=== PATIENT | male | born 1950 | race Caucasian/White ===

== ENCOUNTER 2017-01-29 14:55 | Inpatient (IN) | payer MEDICARE ==
[2017-01-29] MEDS ORDERED: SODIUM CHLORIDE 0.9% 500 ML IV STA (15:28)
[2017-01-29] MEDS ORDERED: SODIUM CHLORIDE 0.9% 1,000 ML IV STA (15:28)
--- NOTE | 2017-01-29 15:37 | ED ---
General Adult HPI - General Chief complaint: Neuro Symptoms/Deficit Stated complaint: TIA Symptoms Time Seen by Provider: 01/29/17 15:28 Source: patient, RN notes reviewed, old records reviewed Mode of arrival: wheelchair Limitations: no limitations - History of Present Illness Initial comments: This is a 66-year-old male to the ER for evaluation of altered mental status. Patient has severe right-sided hemiparesis. Patient does have history of diabetes and cardiac risk, patient complaining of right-sided weakness and right -sided upper right and left lower extremity and facial paralysis. Patient inability to move. Symptoms are greater than 36 hours ago when he awoke yesterday. Symptoms have progressively worsened, patient presented ER for same. - Related Data Home Medications Medication Instructions Recorded Confirmed Aspirin EC [Ecotrin Low Dose] 81 mg PO DAILY 01/29/17 01/29/17 Baclofen 10 mg PO TID PRN 01/29/17 01/29/17 Cholecalciferol [Vitamin D3] 2,000 unit PO DAILY 01/29/17 01/29/17 Dapagliflozin Propanediol [Farxiga] 10 mg PO DAILY 01/29/17 01/29/17 Ferrous Sulfate [Feosol] 325 mg PO DAILY 01/29/17 01/29/17 Glimepiride [Amaryl] 2 mg PO DAILY 01/29/17 01/29/17 HYDROcodone/APAP 10-325MG [[place] 1 tab PO Q6H PRN 01/29/17 01/29/17 10-325] Losartan Potassium [Cozaar] 25 mg PO DAILY 01/29/17 01/29/17 Omeprazole 20 mg PO DAILY 01/29/17 01/29/17 Sertraline [Zoloft] 100 mg PO DAILY 01/29/17 01/29/17 fentaNYL 75MCG/HR PATCH [Duragesic 1 patch TRANSDERM Q72H 01/29/17 01/29/17 75MCG/HR] sitaGLIPtin PHOS/metFORMIN HCL 1 tab PO DAILY 01/29/17 01/29/17 [Janumet 50-1,000 mg Tablet] Allergies Allergy/AdvReac Type Severity Reaction Status Date / Time No Known Allergies Allergy Verified 01/29/17 16:00 Review of Systems ROS Statement: Those systems with pertinent positive or pertinent negative responses have been documented in the HPI. ROS Other: All systems not noted in ROS Statement are negative. Past Medical History Past Medical History: Cancer, Diabetes Mellitus Additional Past Medical History / Comment(s): skin CA History of Any Multi-Drug Resistant Organisms: None Reported Past Surgical History: No Surgical Hx Reported Additional Past Surgical History / Comment(s): lower back, spleen removed Past Psychological History: No Psychological Hx Reported Smoking Status: Never smoker Past Alcohol Use History: None Reported Past Drug Use History: None Reported General Exam Limitations: no limitations General appearance: alert, in no apparent distress Head exam: Present: atraumatic, normocephalic, normal inspection Eye exam: Present: normal appearance, PERRL, EOMI. Absent: scleral icterus, conjunctival injection, periorbital swelling ENT exam: Present: normal exam, mucous membranes moist Neck exam: Present: normal inspection. Absent: tenderness, meningismus, lymphadenopathy Respiratory exam: Present: normal lung sounds bilaterally. Absent: respiratory distress, wheezes, rales, rhonchi, stridor Cardiovascular Exam: Present: regular rate, normal rhythm, normal heart sounds. Absent: systolic murmur, diastolic murmur, rubs, gallop, clicks GI/Abdominal exam: Present: soft, normal bowel sounds. Absent: distended, tenderness, guarding, rebound, rigid Extremities exam: Present: normal inspection, full ROM, normal capillary refill. Absent: tenderness, pedal edema, joint swelling, calf tenderness Back exam: Present: normal inspection Neurological exam: Present: alert, oriented X3, CN II-XII intact Psychiatric exam: Present: normal affect, normal mood Skin exam: Present: warm, dry, intact, normal color. Absent: rash Course Vital Signs 01/29/17 01/29/17 01/29/17 14:57 15:03 15:20 Temperature 100.8 F H Pulse Rate 89 85 Respiratory 18 18 Rate Blood Pressure 179/89 159/78 O2 Sat by Pulse 93 L Oximetry 01/29/17 01/29/17 01/29/17 15:35 15:53 16:03 Temperature 99.4 F Pulse Rate 85 82 Respiratory 18 20 Rate Blood Pressure 172/97 170/97 O2 Sat by Pulse 93 L 96 Oximetry - Reevaluation(s) Reevaluation #1: 01/29/17 17:13 Spoke with family greater than 15 minutes regarding significant disease process. EKG Findings - EKG Comments: EKG Findings:: EKG shows sinus rhythm rate of 83, pO2 80, QRS 160, QTc 467 Medical Decision Making - Medical Decision Making 66 mL to ER with severe CVA, full right-sided hemiparesis, patient will be admitted for neurological evaluation no stroke candidate secondary to presentation from duration of symptoms being greater than a day. Patient given aspirin, will admit for neurological testing, neuro evaluation - Lab Data Result diagrams: 01/29/17 15:37 01/29/17 15:37 Lab Results 01/29/17 01/29/17 01/29/17 Range/Units 15:37 15:37 15:37 WBC 13.7 H (3.8-10.6) k/uL RBC 4.21 L (4.30-5.90) m/uL Hgb 14.5 (13.0-17.5) gm/dL Hct 45.0 (39.0-53.0) % MCV 107.0 H (80.0-100.0) fL MCH 34.6 (25.0-35.0) pg MCHC 32.3 (31.0-37.0) g/dL RDW 17.9 H (11.5-15.5) % Plt Count 265 (150-450) k/uL Neutrophils % (Manual) 30.5 % Band Neutrophils % 0.5 % Lymphocytes % (Manual) 65.5 % Monocytes % (Manual) 3.5 % Neutrophils # (Manual) 4.2 (1.3-7.7) k/uL Lymphocytes # (Manual) 9.0 H (1.0-4.8) k/uL Monocytes # (Manual) 0.5 (0-1.0) k/uL Nucleated RBCs 4 H (0-0) /100 WBC Manual Slide Review Performed Toxic Granulation Present Polychromasia Present Poikilocytosis (manual Present Anisocytosis Slight Macrocytosis Marked PT (9.0-12.0) sec INR (<1.2) APTT (22.0-30.0) sec Sodium 139 (137-145) mmol/L Potassium 4.7 (3.5-5.1) mmol/L Chloride 104 (98-107) mmol/L Carbon Dioxide 25 (22-30) mmol/L Anion Gap 10 mmol/L BUN 22 H (9-20) mg/dL Creatinine 1.10 (0.66-1.25) mg/dL Est GFR (MDRD) Af Amer >60 (>60 ml/min/1.73 sqM) Est GFR (MDRD) Non-Af >60 (>60 ml/min/1.73 sqM) Glucose 219 H (74-99) mg/dL Calcium 8.5 (8.4-10.2) mg/dL Phosphorus 3.3 (2.5-4.5) mg/dL Magnesium 1.7 (1.6-2.3) mg/dL Total Bilirubin 0.8 (0.2-1.3) mg/dL AST 34 (17-59) U/L ALT 41 (21-72) U/L Alkaline Phosphatase 64 (38-126) U/L Total Creatine Kinase 59 (55-170) U/L CK-MB (CK-2) 1.7 (0.0-2.4) ng/mL CK-MB (CK-2) Rel Index 2.9 Troponin I 0.019 (0.000-0.034) ng/mL Total Protein 7.0 (6.3-8.2) g/dL Albumin 4.2 (3.5-5.0) g/dL 01/29/17 Range/Units 15:37 WBC (3.8-10.6) k/uL RBC (4.30-5.90) m/uL Hgb (13.0-17.5) gm/dL Hct (39.0-53.0) % MCV (80.0-100.0) fL MCH (25.0-35.0) pg MCHC (31.0-37.0) g/dL RDW (11.5-15.5) % Plt Count (150-450) k/uL Neutrophils % (Manual) % Band Neutrophils % % Lymphocytes % (Manual) % Monocytes % (Manual) % Neutrophils # (Manual) (1.3-7.7) k/uL Lymphocytes # (Manual) (1.0-4.8) k/uL Monocytes # (Manual) (0-1.0) k/uL Nucleated RBCs (0-0) /100 WBC Manual Slide Review Toxic Granulation Polychromasia Poikilocytosis (manual Anisocytosis Macrocytosis PT 11.4 (9.0-12.0) sec INR 1.1 (<1.2) APTT 26.2 (22.0-30.0) sec Sodium (137-145) mmol/L Potassium (3.5-5.1) mmol/L Chloride (98-107) mmol/L Carbon Dioxide (22-30) mmol/L Anion Gap mmol/L BUN (9-20) mg/dL Creatinine (0.66-1.25) mg/dL Est GFR (MDRD) Af Amer (>60 ml/min/1.73 sqM) Est GFR (MDRD) Non-Af (>60 ml/min/1.73 sqM) Glucose (74-99) mg/dL Calcium (8.4-10.2) mg/dL Phosphorus (2.5-4.5) mg/dL Magnesium (1.6-2.3) mg/dL Total Bilirubin (0.2-1.3) mg/dL AST (17-59) U/L ALT (21-72) U/L Alkaline Phosphatase (38-126) U/L Total Creatine Kinase (55-170) U/L CK-MB (CK-2) (0.0-2.4) ng/mL CK-MB (CK-2) Rel Index Troponin I (0.000-0.034) ng/mL Total Protein (6.3-8.2) g/dL Albumin (3.5-5.0) g/dL - Radiology Data Radiology results: report reviewed (Chest x-ray negative, CT brain is negative for acute disease, CTA and she'll head and neck is pending), image reviewed Critical Care Time Critical Care Time: Yes Total Critical Care Time: 31 Disposition Clinical Impression: Cerebrovascular accident Disposition: ADMITTED IP TO THIS [facility] Condition: Good Referrals: Justice Segovia MD [Primary Care Provider] - 1-2 days
[2017-01-29 15:47] LABS: Anisocytosis Slight; CH 35.3; CHCM 33.3; HDW 3.14; HGB 14.5 gm/dL (13.0-17.5); MCH 34.6 pg (25.0-35.0); MCHC 32.3 g/dL (31.0-37.0); Macrocytosis Marked; Mean Platelet Volume 8.3; RBC 4.21 m/uL (4.30-5.90); RDW 17.9 % (11.5-15.5); WBC (Perox) 13.76
[2017-01-29 15:58] LABS: ALT 41 U/L (21-72); AST 34 U/L (17-59); Alkaline Phosphatase 64 U/L (38-126); Anion Gap 10 mmol/L; Blood Urea Nitrogen 22 mg/dL (9-20); Calcium 8.5 mg/dL (8.4-10.2); Carbon Dioxide 25 mmol/L (22-30); Chloride 104 mmol/L (98-107); Glucose 219 mg/dL (74-99); Magnesium 1.7 mg/dL (1.6-2.3); Non-African American GFR(MDRD) >60 (>60 ml/min/1.73 sqM); Phosphorous 3.3 mg/dL (2.5-4.5); Potassium 4.7 mmol/L (3.5-5.1); Sodium 139 mmol/L (137-145); Total Bilirubin 0.8 mg/dL (0.2-1.3)
--- NOTE | 2017-01-29 15:59 | CT ---
EXAMINATION TYPE: CT brain wo con DATE OF EXAM: 01/29/2017 HISTORY: TIA symptoms CT DLP: 978.2 mGycm. Automated Exposure Control for Dose Reduction was Utilized. TECHNIQUE: CT scan of the head is performed without contrast. COMPARISON: None. FINDINGS: There is no acute intracranial hemorrhage or midline shift identified. There is diffuse v entricular and sulcal prominence consistent with diffuse age-related cerebral atrophy. There is low- attenuation in the periventricular white matter consistent with chronic small vessel ischemic change. The globes are intact and the visualized sinuses are clear. IMPRESSION: No acute intracranial hemorrhage or midline shift. There is mild to moderate diffuse ag e-related cerebral atrophy and chronic small vessel ischemic change noted. If clinical concern for a cute stroke persists further investigation with MRI study may be warranted.
[2017-01-29 16:00] LABS: INR 1.1 (<1.2); Partial Thromboplastin Time 26.2 sec (22.0-30.0); Prothrombin Time 11.4 sec (9.0-12.0)
[2017-01-29 16:14] LABS: Creatine Kinase MB 1.7 ng/mL (0.0-2.4)
[2017-01-29 16:18] LABS: Troponin I 0.019 ng/mL (0.000-0.034)
[2017-01-29 16:20] LABS: Add Differential Manual Differential
[2017-01-29 16:25] LABS: Band Neutrophils % 0.5 %; Nucleated Red Blood Cells 4 /100 WBC (0-0); Total Cells Counted 200; WBC 13.7 k/uL (3.8-10.6)
[2017-01-29 16:26] LABS: Manual Review Performed; Polychromasia Present; Toxic Granulation Present
[2017-01-29] MEDS ORDERED: RX INFO: IV CONTRAST WAS GIVEN 1 EACH MISC MISCELLANE PRN (16:35)
--- NOTE | 2017-01-29 16:52 | XR ---
EXAMINATION TYPE: XR chest 2V DATE OF EXAM: 01/29/2017 COMPARISON: 11/27/2012 HISTORY: Weakness TECHNIQUE: Frontal and lateral views of the chest are obtained. FINDINGS: There is elevated right diaphragm. There is no heart failure. Costophrenic angles are marvin r. There are chest leads. IMPRESSION: Chronic right diaphragm elevation there is worse than last exam and consistent with diap hragm paralysis. No heart failure.
[2017-01-29] MEDS ORDERED: ASPIRIN 325 MG TAB PO STA (17:08)
--- NOTE | 2017-01-29 17:34 | CT ---
EXAMINATION TYPE: CT angio head neck DATE OF EXAM: 01/29/2017 HISTORY: Patient complians of right side weakness COMPARISON: NONE CT DLP: 280.4 mGycm. Automated Exposure Control for Dose Reduction was Utilized. TECHNIQUE: CTA scan of the neck is performed with IV Contrast, patient injected with 65 mL of Omnipa que 350, axial images are obtained, coronal and sagittal reformatted images are reviewed. Three-D rec onstructed images are created on an independent workstation and reviewed. FINDINGS: There is normal branching pattern of the great vessels on the aortic arch. There is bilateral patency of the common internal and external carotid arteries. There is minimal atherosclerotic changes at th e carotid artery bifurcations. There is no evidence of stenosis. There is arterial flow in both vertebral arteries. There is normal contrast opacification of the venous sinuses. There is arterial flow in the anterior middle and posterior cerebral arteries. There is arterial flow in the vertebrobasilar artery system. There is some atherosclerotic calcification in the distal left vertebral artery. I see no significant stenosis. I see no evidence of aneurysm or neovascularity. IMPRESSION: No evidence of hemodynamically significant stenosis. Minimal atherosclerotic disease.
--- NOTE | 2017-01-29 18:02 | US ---
EXAMINATION TYPE: US carotid duplex BILAT DATE OF EXAM: 01/29/2017 COMPARISON: NONE CLINICAL HISTORY: Stenosis. TIA EXAM MEASUREMENTS: RIGHT: Peak Systolic Velocity (PSV) cm/sec ----- Right CCA: 53.7 ----- Right ICA: 66.9 ----- Right ECA: 104.8 ICA/CCA ratio: 1.2 RIGHT: End Diastole cm/sec ----- Right CCA: 13.1 ----- Right ICA: 18.6 ----- Right ECA: 6.3 LEFT: Peak Systolic Velocity (PSV) cm/sec ----- Left CCA: 90.5 ----- Left ICA: 87.9 ----- Left ECA: 83.8 ICA/CCA ratio: 1.0 LEFT: End Diastole cm/sec ----- Left CCA: 18 ----- Left ICA: 29.6 ----- Left ECA: 0 VERTEBRALS (direction of flow): Right Vertebral: Antegrade Left Vertebral: Antegrade No significant stenois visualized. Vessels dive deep. IMPRESSION: There is antegrade flow in the vertebral arteries. The images and measurements suggest c lose to 0% stenosis in both internal carotid arteries. Criteria for Assigning % of Stenosis / Diameter reduction (Estimation based on the indirect measurements of the internal carotid artery velocities (ICA PSV). 1. Normal (no stenosis)=ICA PSV < 125 cm/s: ratio < 2.0: ICA EDV<40 cm/s. 2. Less than 50% stenosis=ICA PSV < 125 cm/s: ratio < 2.0: ICA EDV<40 cm/s. 3. 50 to 69% stenosis=ICA PSV of 125 to 230 cm/s: ration 2.0 ? 4.0: ICA EDV 40-100 cm/s. 4. Greater than 70% stenosis to near occlusion= ICA PSV > 230 cm/s: ratio > 4.0: ICA EDV > 100 cm/s. 5. Near occlusion= ICA PSV velocities may be low or undetectable: variable ratio and ICA EDV. 6. Total occlusion=unable to detect flow.
[2017-01-29 19:50] VITALS: BMI 26.1
[2017-01-29] MEDS ORDERED: HYDROcodone/APAP 10-325MG 1 EACH TAB PO PRN (20:22)
--- NOTE | 2017-01-29 20:42 | P.CNNES ---
History of Present Illness Consult date: 01/29/17 Reason for Consult: Patient being evaluated for TIA versus stroke. History of Present Illness: This patient is a 66-year-old right-handed white male who apparently around midnight last night awoke with symptoms of right-sided weakness. Patient was noticing difficulty with the use of his right arm. He then apparently tried to stand up and go into the bathroom. He made it to the bathroom but on his way back he fell due to weakness of his right leg. His was able to help him and used a transport chair to get him back into bed. Patient has a history of diabetic peripheral neuropathy which does cause him to fall quite often. His felt that this may have been the reason for his fall. She was able to assist him back into bed. He went to bed and awoke only early in the morning. Around 10 or 11 AM he once again noted right-sided weakness. He got up quite late according to the patient. He noted that he was unable to lift his right leg due to weakness. He was also having difficulty with the use of his right arm. He does have a history of diabetes mellitus and his most recent hemoglobin A1c according to the patient was 7.1. He has been diabetic for over 10 years. He states his total cholesterol has been good and usually runs below 200. The patient denies any previous history of TIA or stroke. His symptoms of weakness seemed to progress at home and this was the main reason the decided to bring him to the ER for further evaluation. He was seen in the emergency room at [facility] by Dr. Melendez. He was sent for a computed tomography scan of the brain which revealed no acute intracranial hemorrhage or midline shift. There was mild to moderate diffuse age-related cerebral atrophy and chronic small vessel disease noted. Patient was given one aspirin in the ER and admitted to the hospital. Patient was not a candidate for TPA as he was outside of the therapeutic window. His symptoms were almost 36 hours in process. The patient denies previous history of TIA or stroke. He was sent for a CTA angiogram of the head and neck in the emergency room as well which revealed no evidence of hemodynamically significant stenosis. Carotid Doppler study also failed to reveal any significant carotid artery stenosis. The patient was subsequently admitted to the hospital for further evaluation. Neurology is now been consulted for further evaluation and recommendations. Review of Systems Constitutional: Denies chills, Denies fever Eyes: denies blurred vision, denies pain Ears, nose, mouth and throat: Denies headache, Denies sore throat Cardiovascular: Denies chest pain, Denies shortness of breath Respiratory: Denies cough Gastrointestinal: Denies abdominal pain, Denies diarrhea, Denies nausea, Denies vomiting Musculoskeletal: Denies myalgias Integumentary: Denies pruritus, Denies rash Neurological: Reports balance difficulties, Reports change in mentation, Reports change in speech, Reports gait dysfunction, Reports lack of coordination , Reports motor disturbance, Reports paresthesias, Reports sensory deficit, Denies numbness, Denies weakness Psychiatric: Denies anxiety, Denies depression Endocrine: Denies fatigue, Denies weight change Past Medical History Past Medical History: Cancer, Diabetes Mellitus Additional Past Medical History / Comment(s): skin CA History of Any Multi-Drug Resistant Organisms: None Reported Past Surgical History: No Surgical Hx Reported Additional Past Surgical History / Comment(s): lower back, spleen removed Past Psychological History: No Psychological Hx Reported Smoking Status: Never smoker Past Alcohol Use History: None Reported Past Drug Use History: None Reported Medications and Allergies Home Medications Medication Instructions Recorded Confirmed Type Aspirin EC [Ecotrin Low Dose] 81 mg PO DAILY 01/29/17 01/29/17 History Baclofen 10 mg PO TID PRN 01/29/17 01/29/17 History Cholecalciferol [Vitamin D3] 2,000 unit PO DAILY 01/29/17 01/29/17 History Dapagliflozin Propanediol [Farxiga] 10 mg PO DAILY 01/29/17 01/29/17 History Ferrous Sulfate [Feosol] 325 mg PO DAILY 01/29/17 01/29/17 History Glimepiride [Amaryl] 2 mg PO DAILY 01/29/17 01/29/17 History HYDROcodone/APAP 10-325MG [[place] 1 tab PO Q6H PRN 01/29/17 01/29/17 History 10-325] Losartan Potassium [Cozaar] 25 mg PO DAILY 01/29/17 01/29/17 History Omeprazole 20 mg PO DAILY 01/29/17 01/29/17 History Sertraline [Zoloft] 100 mg PO DAILY 01/29/17 01/29/17 History fentaNYL 75MCG/HR PATCH [Duragesic 1 patch TRANSDERM Q72H 01/29/17 01/29/17 History 75MCG/HR] sitaGLIPtin PHOS/metFORMIN HCL 1 tab PO DAILY 01/29/17 01/29/17 History [Janumet 50-1,000 mg Tablet] Allergies Allergy/AdvReac Type Severity Reaction Status Date / Time No Known Allergies Allergy Verified 01/29/17 16:00 Physical Examination - Vital Signs Vital Signs: Vital Signs Temp Pulse Resp BP Pulse Ox 01/29/17 18:00 74 20 159/76 96 01/29/17 16:03 82 20 170/97 96 01/29/17 15:53 99.4 F 01/29/17 15:35 85 18 172/97 93 L 01/29/17 15:20 85 18 159/78 93 L 01/29/17 15:03 100.8 F H 01/29/17 14:57 89 18 179/89 Intake and Output 01/29/17 01/29/17 01/29/17 06:59 14:59 22:59 Other: Weight 68.946 kg Patient Weight 01/30/17 06:59 Weight 68.946 kg - Constitutional General appearance: average body habitus, cooperative - EENT EENT: PERRL, mucous membranes moist - Respiratory Respiratory: lungs clear, normal breath sounds - Cardiovascular Cardiovascular: regular rate, normal S1, normal S2 Extremities: no peripheral edema bilaterally - Gastrointestinal Gastrointestinal: normoactive bowel sounds - Integumentary Integumentary: normal - Neurologic Cranial nerve examination: PERRL, EOMI, VFF, V1/V2/V3 grossly intact, tongue midline, intact gag reflex, intact corneal reflex, facial droop (Patient has right upper motor neuron facial weakness pattern.), normal palatal elevation Speech examination: intact Sensorimotor examination: intact Motor examination - right side: 3/5: biceps, triceps, wrist flexion, wrist extension, dental assistant, hip flexors, knee extensors, dorsiflexion, toe extension (EHL) , plantarflexion Motor examination - left side: 5/5: biceps, triceps, wrist flexion, wrist extension, dental assistant, hip flexors, knee extensors, dorsiflexion, toe extension (EHL) , plantarflexion Detailed sensory examination: intact Reflex and gait examination: intact Reflexes: 1+: ankle, bicep, knee, tricep - Musculoskeletal Musculoskeletal: no pain - Psychiatric Psychiatric: mood/affect appropriate, cooperative Results - Laboratory Findings CBC and BMP: 01/29/17 15:37 01/29/17 15:37 Abnormal Lab Findings: Abnormal Labs 01/29/17 01/29/17 15:37 15:37 WBC 13.7 H RBC 4.21 L MCV 107.0 H RDW 17.9 H Lymphocytes # (Manual) 9.0 H Nucleated RBCs 4 H BUN 22 H Glucose 219 H Assessment and Plan (1) Left acute arterial ischemic stroke, MCA (middle cerebral artery) Status: Acute Code(s): I63.512 - CEREB INFRC D/T UNSP OCCLS OR STENOS OF LEFT MID CEREB ART (2) Diabetes mellitus Status: Acute Code(s): E11.9 - TYPE 2 DIABETES MELLITUS WITHOUT COMPLICATIONS (3) Chronic low back pain Status: Acute Code(s): M54.5 - LOW BACK PAIN; G89.29 - OTHER CHRONIC PAIN (4) Hypertension Status: Acute Code(s): I10 - ESSENTIAL (PRIMARY) HYPERTENSION Plan: This patient is a 66-year-old right-handed white male admitted to hospital with acute right-sided weakness and facial droop. Patient's symptoms began around midnight yesterday. He did not seek medical attention at that time but decided this morning to come to the emergency room. He was taken to [facility] ER today and was seen by Dr. Melendez. He underwent a computed tomography scan of the brain results which are noted above. There is no evidence of acute stroke. Patient was not a candidate for TPA as his deficits were over 36 hours in duration. He continued to demonstrate right-sided hemiparesis in the ER. He was admitted to hospital for further stroke evaluation. Patient underwent carotid Doppler study which failed to reveal any significant carotid artery stenosis. CTA angiogram of the head and neck was completed and was negative. He was given aspirin and admitted to the hospital. His neurological examination at this time reveals right-sided hemiparesis leg greater than arm. He has right facial droop as well. This patient has suffered an acute left hemispheric stroke. We have recommended a complete stroke evaluation for the patient. His overall prognosis at this time remains very guarded. Time with Patient: Greater than 30
[2017-01-29 20:56] LABS: Glucose,Whole Blood 129 mg/dL (75-99)
[2017-01-29] MEDS: SODIUM CHLORIDE 0.9% 1,000 ML IV SCH (21:25)
[2017-01-29] MEDS: INSULIN LISPRO (humaLOG) 300 UNIT/3 ML VIAL SQ SCH (21:26)
[2017-01-30 00:16] LABS: Hemoglobin A1C 8.7 % (4.2-6.1)
[2017-01-30 04:01] LABS: Anion Gap 10 mmol/L; Blood Urea Nitrogen 20 mg/dL (9-20); Calcium 8.3 mg/dL (8.4-10.2); Carbon Dioxide 25 mmol/L (22-30); Chloride 106 mmol/L (98-107); Cholesterol 126 mg/dL (<200); Glucose 87 mg/dL (74-99); HDL Cholesterol 33 mg/dL (40-60); Magnesium 1.7 mg/dL (1.6-2.3); Non-African American GFR(MDRD) >60 (>60 ml/min/1.73 sqM); Potassium 4.2 mmol/L (3.5-5.1); Sodium 141 mmol/L (137-145); Triglycerides 186 mg/dL (<150)
[2017-01-30 04:28] LABS: Anisocytosis Slight; CHCM 32.9; HGB 13.3 gm/dL (13.0-17.5); Macrocytosis Marked
[2017-01-30 05:01] LABS: CH 34.8; HCT 40.9 % (39.0-53.0); HDW 3.17; MCH 34.7 pg (25.0-35.0); MCHC 32.5 g/dL (31.0-37.0); MCV 106.7 fL (80.0-100.0); RBC 3.83 m/uL (4.30-5.90); RDW 17.7 % (11.5-15.5)
[2017-01-30 06:28] LABS: Glucose,Whole Blood 110 mg/dL (75-99)
[2017-01-30 06:39] LABS: Add Differential Manual Differential
[2017-01-30] MEDS: INSULIN LISPRO (humaLOG) 300 UNIT/3 ML VIAL SQ SCH ×4 (06:42→21:19)
[2017-01-30 06:45] LABS: Nucleated Red Blood Cells 3 /100 WBC (0-0); Total Cells Counted 200; WBC 12.6 k/uL (3.8-10.6)
[2017-01-30 06:47] LABS: Howell-Jolly Bodies Present; Polychromasia Present; Target Cells Present
[2017-01-30] MEDS ORDERED: HEPARIN SODIUM,PORCINE 5,000 UNIT/ML 1 ML VIAL IV PRN (06:50)
[2017-01-30] MEDS ORDERED: HEPARIN SODIUM,PORCINE/D5W PMX 25,000 UNIT in DEXTROSE/WATER 1 500ML.BAG IV SCH (07:00)
[2017-01-30] MEDS: GLIMEPIRIDE 2 MG TAB PO SCH (07:01)
[2017-01-30] MEDS: PANTOPRAZOLE 40 MG TABLET PO SCH (07:01)
[2017-01-30] MEDS: SODIUM CHLORIDE 0.9% 1,000 ML IV SCH ×3 (07:03→21:17)
[2017-01-30 07:53] LABS: INR 1.1 (<1.2); Partial Thromboplastin Time 25.9 sec (22.0-30.0); Prothrombin Time 10.7 sec (9.0-12.0)
[2017-01-30] MEDS ORDERED: NON-FORMULARY DRUG (Sitagliptin Phos/Metformin Hcl [Janumet 50-1,000 Mg Tablet] 1 TAB) PO SCH (09:00)
[2017-01-30] MEDS ORDERED: NON-FORMULARY DRUG (Dapagliflozin Propanediol [Farxiga] 10 MG) PO SCH (09:00)
[2017-01-30] MEDS: SERTRALINE 100 MG TAB PO SCH (09:39)
[2017-01-30] MEDS: LINAGLIPTIN 5 MG TABLET PO SCH (09:39)
[2017-01-30] MEDS: metFORMIN 500 MG TAB PO SCH (09:39)
[2017-01-30] MEDS: FERROUS SULFATE 325 MG TAB PO SCH (09:40)
[2017-01-30] MEDS: ASPIRIN 325 MG TAB PO SCH (09:40)
[2017-01-30] MEDS: CHOLECALCIFEROL 1,000 UNIT TAB PO SCH (09:40)
--- NOTE | 2017-01-30 11:29 | ECHOF ---
Referral Reason:Thrombus MEASUREMENTS -------- HEIGHT: 162.6 cm WEIGHT: 66.7 kg BP: 128/76 IVSd: 1.3 cm (0.6 - 1.1) LVIDd: 4.1 cm (3.9 - 5.3) LVPWd: 1.1 cm (0.6 - 1.1) IVSs: 1.8 cm LVIDs: 3.1 cm LVPWs: 1.1 cm Ao Diam: 3.5 cm (2.0 - 3.7) AV Cusp: 2.0 cm (1.5 - 2.6) LA Diam: 3.0 cm (2.7 - 3.8) MV EXCURSION: 15.618 mm (> 18.000) MV EF SLOPE: 124 mm/s (70 - 150) EPSS: 0.6 cm MV E Dagoberto: 0.84 m/s MV DecT: 71 ms MV A Dagoberto: 0.84 m/s MV E/A Ratio: 1.00 RAP: 5.00 mmHg RVSP: 12.89 mmHg FINDINGS -------- Sinus rhythm. BBB This was a technically difficult study with suboptimal views. The left ventricular size is normal. There is mild concentric left ventricular hypertrophy. Overall left ventricular systolic function is mild-moderately impaired with, an EF between 40 - 45 %. Basal lateral LV wall motion is hypokinetic. Basal inferior LV wall motion is hypokinetic. Basal inferoseptal LV wall motion is hypokinetic. Mid inferior LV wall motion is hypokinetic. Apical inferior LV wall motion is hypokinetic. The right ventricle is normal in size and function. The left atrium is normal in size. The right atrium is normal in size. 1.5mg of Definity was utilized for enhancement of images There is mild aortic valve sclerosis. Mild mitral annular calcification present. Mild mitral regurgitation is present. Trace tricuspid regurgitation present. The right ventricular systolic pressure, as measured by Doppler, is 12.89mmHg. There is no pulmonic regurgitation present. The aortic root size is normal. There is no pericardial effusion. CONCLUSIONS -------- 1. Sinus rhythm. 2. The left atrium is normal in size. 3. 1.5mg of Definity was utilized for enhancement of images 4. There is mild aortic valve sclerosis. 5. Mild mitral annular calcification present. 6. Mild mitral regurgitation is present. 7. Trace tricuspid regurgitation present. 8. The right ventricular systolic pressure, as measured by Doppler, is 12.89mmHg. 9. There is no pulmonic regurgitation present. 10. The aortic root size is normal. 11. There is no pericardial effusion. 12. This was a technically difficult study with suboptimal views. 13. There is mild concentric left ventricular hypertrophy. 14. Overall left ventricular systolic function is mild-moderately impaired with, an EF between 40 - 45 %. 15. Basal lateral LV wall motion is hypokinetic. 16. Basal inferior LV wall motion is hypokinetic. 17. Basal inferoseptal LV wall motion is hypokinetic. 18. Mid inferior LV wall motion is hypokinetic. 19. Apical inferior LV wall motion is hypokinetic. CAR ICER: Alejandrina Lody RDCS
--- NOTE | 2017-01-30 12:50 | MR ---
EXAMINATION TYPE: MR brain wo con DATE OF EXAM: 01/30/2017 12:26 PM. COMPARISON: NONE. HISTORY: Left hemispheric stroke. Technique: Multiplanar, multiecho imaging of the brain was obtained without intravenous contrast. FINDINGS: Midline structures are unremarkable. There is a normal craniocervical junction. There is 11.6 x 17.9 mm area of restricted diffusion in the posterior aspect of the holloway radiata on the left. No other restricted diffusion is seen. There are normal vascular flow voids. The orbits are normal. There is no evidence of a CP angle mass lesion. There is a focal FLAIR lesion corresponding to the area restricted diffusion in the holloway radiata on the left. There are other scattered high signal FLAIR lesions throughout the deep white matter tract s was utilized.. There is no mass effect, midline shift or intracranial blood. IMPRESSION: 1. EVIDENCE OF A SUBACUTE INFARCT INVOLVING THE POSTERIOR HOLLOWAY RADIATA ON THE LEFT. 2. SCATTERED HIGH SIGNAL FLAIR LESIONS THROUGHOUT THE DEEP WHITE MATTER TRACTS OF THE CEREBRAL HEMISP HERES ARE LIKELY ON THE BASIS SMALL VESSEL DISEASE.
[2017-01-30 12:56] LABS: Glucose,Whole Blood 195 mg/dL (75-99)
--- NOTE | 2017-01-30 16:29 | P.HPIM ---
History of Present Illness 66-year-old male came in with right-sided weakness found to have a stroke on MRI left holloway radiate, carotid Doppler, CT angiography head and neck did not show any significant occlusive disease. Patient has decreased ejection fraction was evaluated by cardiology patient is minimally elevated troponin as well although denied any chest pain patient does have some right bundle branch block pattern on the check on the EKG patient was evaluated by cardiology. Because of minimal elevation of troponin and cardiology is recommending a monitor because of possible Atrial fibrillation contributing to this stroke. Patient did undergo PT and OT evaluation patient denied any fever chills, nausea , vomiting, shortness of breath, orthopnea, PND. Patient patient did have improved weakness on the right upper limb as well as lower limb but still has 3 x 5 strength in right upper limb and around 2-3 x 5 strength in right lower limb along with facial droop. Review of Systems REVIEW OF SYSTEMS: CONSTITUTIONAL: No fever, no malaise, no fatigue. HEENT: No recent visual problems or hearing problems. Denied any sore throat. CARDIOVASCULAR: No chest pain, orthopnea, PND, no palpitations, no syncope. PULMONARY: No shortness of breath, no cough, no hemoptysis. GASTROINTESTINAL: No diarrhea, no nausea, no vomiting, no abdominal pain. Normoactive bowel sounds. NEUROLOGICAL: As described in HPI HEMATOLOGICAL: Denies any bleeding or petechiae. GENITOURINARY: Denies any burning micturition, frequency, or urgency. MUSCULOSKELETAL/RHEUMATOLOGICAL: Denies any joint pain, swelling, or any muscle pain. ENDOCRINE: Denies any polyuria or polydipsia. The rest of the 14-point review of systems is negative. Past Medical History Past Medical History: Cancer, Diabetes Mellitus Additional Past Medical History / Comment(s): skin CA History of Any Multi-Drug Resistant Organisms: None Reported Past Surgical History: No Surgical Hx Reported Additional Past Surgical History / Comment(s): lower back, spleen removed Past Psychological History: No Psychological Hx Reported Smoking Status: Never smoker Past Alcohol Use History: None Reported Past Drug Use History: None Reported Medications and Allergies Home Medications Medication Instructions Recorded Confirmed Type Aspirin EC [Ecotrin Low Dose] 81 mg PO DAILY 01/29/17 01/29/17 History Baclofen 10 mg PO TID PRN 01/29/17 01/29/17 History Cholecalciferol [Vitamin D3] 2,000 unit PO DAILY 01/29/17 01/29/17 History Dapagliflozin Propanediol [Farxiga] 10 mg PO DAILY 01/29/17 01/29/17 History Ferrous Sulfate [Feosol] 325 mg PO DAILY 01/29/17 01/29/17 History Glimepiride [Amaryl] 2 mg PO DAILY 01/29/17 01/29/17 History HYDROcodone/APAP 10-325MG [[place] 1 tab PO Q6H PRN 01/29/17 01/29/17 History 10-325] Losartan Potassium [Cozaar] 25 mg PO DAILY 01/29/17 01/29/17 History Omeprazole 20 mg PO DAILY 01/29/17 01/29/17 History Sertraline [Zoloft] 100 mg PO DAILY 01/29/17 01/29/17 History fentaNYL 75MCG/HR PATCH [Duragesic 1 patch TRANSDERM Q72H 01/29/17 01/29/17 History 75MCG/HR] sitaGLIPtin PHOS/metFORMIN HCL 1 tab PO DAILY 01/29/17 01/29/17 History [Janumet 50-1,000 mg Tablet] Allergies Allergy/AdvReac Type Severity Reaction Status Date / Time No Known Allergies Allergy Verified 01/29/17 16:00 Physical Exam Vitals: Vital Signs Temp Pulse Pulse Resp BP BP Pulse Ox 01/30/17 13:00 98 F 82 18 129/69 97 01/30/17 08:49 93 L 01/30/17 08:45 84 17 01/30/17 03:35 97.1 F L 77 16 128/76 93 L 01/29/17 23:45 97.8 F 74 18 126/76 91 L 01/29/17 19:18 97.1 F L 76 18 148/88 93 L 01/29/17 18:55 99.1 F 74 18 159/76 98 01/29/17 18:00 74 20 159/76 96 Intake and Output 01/30/17 01/30/17 01/30/17 06:59 14:59 22:59 Intake Total 800 200 Balance 800 200 Intake: IV 800 Sodium Chloride 0.9% 1, 800 000 ml @ 100 mls/hr IV . Q10H [facility] Rx#:[id number] Oral 200 Other: Voiding Method Urinal Urinal # Voids 1 Weight 67 kg PHYSICAL EXAMINATION: GENERAL: The patient is alert and oriented x3, not in any acute distress. Well developed, well nourished. HEENT: Pupils are round and equally reacting to light. EOMI. No scleral icterus. No conjunctival pallor. Normocephalic, atraumatic. No pharyngeal erythema. No thyromegaly. CARDIOVASCULAR: S1 and S2 present. No murmurs, rubs, or gallops. PULMONARY: Chest is clear to auscultation, no wheezing or crackles. ABDOMEN: Soft, nontender, nondistended, normoactive bowel sounds. No palpable organomegaly. MUSCULOSKELETAL: No joint swelling or deformity. EXTREMITIES: No cyanosis, clubbing, or pedal edema. NEUROLOGICAL: As described in HPI SKIN: No rashes. Results CBC & Chem 7: 01/30/17 03:31 01/30/17 03:31 Labs: Abnormal Lab Results - Last 24 Hours (Table) 01/29/17 01/29/17 01/29/17 Range/Units 15:37 15:37 20:52 WBC 13.7 H (3.8-10.6) k/uL RBC (4.30-5.90) m/uL MCV (80.0-100.0) fL RDW (11.5-15.5) % Lymphocytes # (Manual) 9.0 H (1.0-4.8) k/uL Nucleated RBCs 4 H (0-0) /100 WBC POC Glucose (mg/dL) 129 H (75-99) mg/dL Hemoglobin A1c 8.7 H (4.2-6.1) % Calcium (8.4-10.2) mg/dL Troponin I (0.000-0.034) ng/mL Triglycerides (<150) mg/dL HDL Cholesterol (40-60) mg/dL 01/30/17 01/30/17 01/30/17 Range/Units 03:31 03:31 03:31 WBC 12.6 H (3.8-10.6) k/uL RBC 3.83 L (4.30-5.90) m/uL MCV 106.7 H (80.0-100.0) fL RDW 17.7 H (11.5-15.5) % Lymphocytes # (Manual) 8.4 H (1.0-4.8) k/uL Nucleated RBCs 3 H (0-0) /100 WBC POC Glucose (mg/dL) (75-99) mg/dL Hemoglobin A1c (4.2-6.1) % Calcium 8.3 L (8.4-10.2) mg/dL Troponin I 0.035 H* (0.000-0.034) ng/mL Triglycerides 186 H (<150) mg/dL HDL Cholesterol 33 L (40-60) mg/dL 01/30/17 01/30/17 Range/Units 06:17 12:54 WBC (3.8-10.6) k/uL RBC (4.30-5.90) m/uL MCV (80.0-100.0) fL RDW (11.5-15.5) % Lymphocytes # (Manual) (1.0-4.8) k/uL Nucleated RBCs (0-0) /100 WBC POC Glucose (mg/dL) 110 H 195 H (75-99) mg/dL Hemoglobin A1c (4.2-6.1) % Calcium (8.4-10.2) mg/dL Troponin I (0.000-0.034) ng/mL Triglycerides (<150) mg/dL HDL Cholesterol (40-60) mg/dL Thrombosis Risk Factor Assmnt - Choose All That Apply Other Risk Factors: Yes Each Risk Factor Represents 2 Points: Age 61-74 years Each Risk Factor Represents 5 Points: Stroke (< 1 month) Thrombosis Risk Factor Assessment Total Risk Factor Score: 7 Thrombosis Risk Factor Assessment Level: High Risk Assessment and Plan Plan: 1 Ischemic stroke the left holloway radiate involving the right side of the body. Patient is on aspirin, a statin. PT and OT eval and the patient patient will need discharge to subacute rehabilitation. 2 congestive heart failure possibly due to chronic systolic dysfunction: Patient only has minimally depressed ejection fraction of 40 with 50% patient is not in exacerbation because of which I'm not starting him on any any heart failure medications at this point of time I'm expecting it will improve on repeat echocardiogram probably in a month or so. 3 minimally elevated troponin 1 set not high enough to say.non-ST elevation. Cardiology evaluated the patient. There is a concern of atrial fibrillation which we are not seeing here. Because of which patient will be discharged on Holter monitor. #4 Type2 diabetes mellitus: Continue his home regimen 5 depression
[2017-01-30 16:44] LABS: Glucose,Whole Blood 94 mg/dL (75-99)
--- NOTE | 2017-01-30 17:05 | CONS ---
This is a 66-year-old gentleman with a history of type 2 diabetes mellitus, hypertension, hypercholesterolemia, who came in through the emergency room. He came in with complaints of having some altered mental status. He had right- sided weakness. He has diabetes. His right-sided weakness was at least of 36- hour duration. He also had some facial droop. With these symptoms, he came into the hospital, was seen by Neurology, and has been placed on aspirin. He also has hypertension, hyperlipidemia and type 2 diabetes mellitus. Blood pressure seems to be optimally controlled. While he was here, his troponins were performed, and this suggested an elevated troponin in the range of 0.03, and therefore I was asked to see him. He does not have any chest discomfort. He has no shortness of breath. His weakness in the right side seems to be improving. A workup so far did not reveal any carotid stenosis. He has remained in sinus rhythm without any evidence of atrial fibrillation. Neurology evaluation suggests that he has a right-sided hemiparesis and is going to have an MRI performed today. He is also scheduled to have a transthoracic echo. At the time of my evaluation he is resting comfortably without symptoms. PAST MEDICAL HISTORY: 1. Type 2 diabetes mellitus. 2. History of hypertension. 3. Probable hyperlipidemia. 4. No evidence of prior myocardial infarction or CVA. Medications at home included: 1. Janumet. 2. Fentanyl patch. 3. Glimepiride. 4. Iron supplements. 5. Aspirin 81 mg daily. 6. Losartan 25 mg daily. 7. Hydrocodone. 8. He takes vitamin supplements. ALLERGIES: NONE. REVIEW OF SYSTEMS: Unremarkable other than above-mentioned facts. On examination, blood pressure is 128/70, pulse rate 70 per minute, regular. HEENT: Unremarkable. Fundus was not examined by me. Neck is supple. There is no JVD. I do not hear a carotid bruit. Heart exam reveals S1, S2 heard normally, regular. There is no significant rub, murmur or gallops. Lungs reveal decent air entry. Abdomen is soft, non-tender. Lower extremities reveal diminished pulses. Central nervous system reveals some right-sided weakness, but patient tells me there is improvement in his strength in the right arm as well. EKG revealed sinus mechanism, IVCD leftward axis. No acute changes. Rhythm strip review suggests only sinus rhythm. No other arrhythmia was noted. IMPRESSION: 1. Right-sided hemiparesis with improvement. Etiology is elusive. Carotids are normal. This may be a cryptogenic stroke. 2. Hypertension. 3. Type 2 diabetes mellitus. 4. History of probable hyperlipidemia. RECOMMENDATIONS: I am recommending that we perform an echocardiogram and also consider a transesophageal echo tomorrow morning. Rational, risks, benefits and options were explained to the patient. He is already on a heparin drip, which we will continue. Perform additional troponins. Based on echo findings and MRI findings, I will make further recommendations. I also explained to the patient that, given his cryptogenic stroke, he should have a loop recorder performed, which will be performed in the morning. Rationale, risks, benefits and options for transesophageal echo, loop recorder were explained. I will await the findings on the transthoracic echo. Discussed my thoughts in detail with the patient. No family is available to talk to. Thank you very much for the consult. BENJAMIN
--- NOTE | 2017-01-30 17:35 | P.PN ---
Subjective This patient is a 66-year-old male who was seen in neurology consultation yesterday with acute right-sided weakness. Patient is being evaluated for acute left hemispheric stroke. Patient was sent for MRI of the brain today which was reviewed. MRI reveals evidence of an acute versus subacute left hemispheric stroke involving the holloway radiata. The patient does have multiple stroke risk factors including hypertension, hyperlipidemia, and diabetes mellitus type 2. The patient was seen by cardiology today. According to the patient he is being considered for a ENIO procedure to be done tomorrow. His carotids were normal and there is thought for possibility of cryptogenic stroke for the patient. He is likely going to require a loop recorder or 24- hour Holter monitor to rule out paroxysmal atrial fibrillation as well. Patient is to undergo a transthoracic echo as well. His troponin levels were elevated this morning and he was started on a IV heparin protocol. Patient is resting comfortably and is not seen any new changes in terms of his right-sided hemiparesis. We will await further results and testing to be done by cardiology. We reviewed all of his current test results in detail with the patient and his at bedside. MRI results of the brain was extensively reviewed today with the patient and his . We will continue close neurological follow-up for this patient during this admission. Objective - Vital Signs Vital signs: Vital Signs Temp 98 F 01/30/17 13:00 Pulse 82 01/30/17 13:00 Resp 18 01/30/17 13:00 BP 129/69 01/30/17 13:00 Pulse Ox 97 01/30/17 13:00 Intake & Output 01/29/17 01/30/17 01/30/17 18:59 06:59 18:59 Intake Total 1600 200 Output Total 400 Balance 1200 200 Weight 68.946 kg 67 kg Intake: IV 1600 Sodium Chloride 0.9% 1, 1600 000 ml @ 100 mls/hr IV . Q10H [facility] Rx#:[id number] Oral 200 Output: Urine 400 Other: Voiding Method Urinal Urinal # Voids 1 - Exam Physical examination: PHYSICAL EXAMINATION: Patient is resting comfortably in bed. VITAL SIGNS: Blood pressure is [129/69]. Heart rate is [82]. Respiration is [18] . Temperature is [98.0]. HEENT: Head is atraumatic, neck is supple, there were no carotid bruits. CHEST: Lungs are clear to auscultation and percussion. CARDIAC: S1, S2 normal rate and rhythm. There is no murmur. ABDOMEN: Soft and nontender. Bowel sounds are present. EXTREMITIES: There is no pedal edema. Peripheral pulses are present. Neurological examination: Patient's neurological examination is unchanged from yesterday. He has right- sided hemiparesis arm greater than leg. There is right upper motor neuron facial weakness. - Labs CBC & Chem 7: 01/30/17 03:31 01/30/17 03:31 Labs: Abnormal Lab Results - Last 24 Hours (Table) 01/29/17 01/29/17 01/29/17 Range/Units 15:37 15:37 15:37 WBC 13.7 H (3.8-10.6) k/uL RBC 4.21 L (4.30-5.90) m/uL MCV 107.0 H (80.0-100.0) fL RDW 17.9 H (11.5-15.5) % Lymphocytes # (Manual) 9.0 H (1.0-4.8) k/uL Nucleated RBCs 4 H (0-0) /100 WBC BUN 22 H (9-20) mg/dL Glucose 219 H (74-99) mg/dL POC Glucose (mg/dL) (75-99) mg/dL Hemoglobin A1c 8.7 H (4.2-6.1) % Calcium (8.4-10.2) mg/dL Troponin I (0.000-0.034) ng/mL Triglycerides (<150) mg/dL HDL Cholesterol (40-60) mg/dL 01/29/17 01/30/17 01/30/17 Range/Units 20:52 03:31 03:31 WBC (3.8-10.6) k/uL RBC (4.30-5.90) m/uL MCV (80.0-100.0) fL RDW (11.5-15.5) % Lymphocytes # (Manual) (1.0-4.8) k/uL Nucleated RBCs (0-0) /100 WBC BUN (9-20) mg/dL Glucose (74-99) mg/dL POC Glucose (mg/dL) 129 H (75-99) mg/dL Hemoglobin A1c (4.2-6.1) % Calcium 8.3 L (8.4-10.2) mg/dL Troponin I 0.035 H* (0.000-0.034) ng/mL Triglycerides 186 H (<150) mg/dL HDL Cholesterol 33 L (40-60) mg/dL 01/30/17 01/30/17 01/30/17 Range/Units 03:31 06:17 12:54 WBC 12.6 H (3.8-10.6) k/uL RBC 3.83 L (4.30-5.90) m/uL MCV 106.7 H (80.0-100.0) fL RDW 17.7 H (11.5-15.5) % Lymphocytes # (Manual) 8.4 H (1.0-4.8) k/uL Nucleated RBCs 3 H (0-0) /100 WBC BUN (9-20) mg/dL Glucose (74-99) mg/dL POC Glucose (mg/dL) 110 H 195 H (75-99) mg/dL Hemoglobin A1c (4.2-6.1) % Calcium (8.4-10.2) mg/dL Troponin I (0.000-0.034) ng/mL Triglycerides (<150) mg/dL HDL Cholesterol (40-60) mg/dL Assessment and Plan (1) Left acute arterial ischemic stroke, MCA (middle cerebral artery) Status: Acute Code(s): I63.512 - CEREB INFRC D/T UNSP OCCLS OR STENOS OF LEFT MID CEREB ART (2) Diabetes mellitus Status: Acute Code(s): E11.9 - TYPE 2 DIABETES MELLITUS WITHOUT COMPLICATIONS (3) Chronic low back pain Status: Acute Code(s): M54.5 - LOW BACK PAIN; G89.29 - OTHER CHRONIC PAIN (4) Hypertension Status: Acute Code(s): I10 - ESSENTIAL (PRIMARY) HYPERTENSION Plan: This patient is a 66-year-old male admitted with acute right-sided weakness. He underwent MRI of the brain today which reveals evidence of an acute stroke involving the left holloway radiata. We reviewed the results of the MRI today with the patient. Patient had elevated troponin levels early this morning and was started on IV heparin protocol. Cardiology has seen the patient in consultation. He is being scheduled for a loop recorder as well as a ENIO procedure to be done tomorrow. Patient is to continue on heparin protocol until his results are reviewed tomorrow by cardiology. Patient has been seen by physical therapy today. He will require inpatient rehab at the time of his discharge. We will continue close neurological follow-up of this patient during this admission. We once again reviewed the stroke risk factors with the patient and his at bedside. He is to work on all of these areas with tight control. So overall prognosis at this time remains guarded.
[2017-01-30] MEDS ORDERED: ceFAZolin 2 GM in SODIUM CHLORIDE 0.9% 100 ML IVPB ONE (19:45)
[2017-01-30] MEDS ORDERED: SODIUM CHLORIDE 0.9% 1,000 ML IV SCH (19:45)
[2017-01-30] MEDS ORDERED: ceFAZolin 1,000 MG in SODIUM CHLORIDE 0.9% IRRIGATIO 250 ML IRRIGATION ONE (19:45)
[2017-01-30] MEDS ORDERED: ATORVASTATIN 40 MG TAB PO SCH (21:00)
[2017-01-30 21:21] LABS: Glucose,Whole Blood 106 mg/dL (75-99)
[2017-01-31] MEDS: PANTOPRAZOLE 40 MG TABLET PO SCH (04:30)
[2017-01-31] MEDS: GLIMEPIRIDE 2 MG TAB PO SCH (04:30)
[2017-01-31 05:00] VITALS: RESP 16
--- NOTE | 2017-01-31 05:08 | EEG ---
DATE OF SERVICE: 01/30/2017 ELECTROENCEPHALOGRAPHIC EXAMINATION REPORT INDICATION FOR EXAMINATION: This patient is a 66-year-old male being evaluated for acute right-sided weakness and stroke. Patient with evidence of acute left hemispheric stroke. AGE: 66. EEG FINDINGS: A routine 21-channel awake, digital EEG recording was accomplished utilizing the 10-20 international system with bipolar and referential montages. The background activity in the most alert, resting state consists of a low to medium amplitude, fairly well-developed and well-sustained 6-7 Hz activity over the posterior head regions. This posterior rhythm attenuates to eye opening. There is a small amount of low amplitude 18-20 Hz beta activity seen maximally over the anterior head regions. Muscle and movement artifact was observed on a few occasions during the tracing. Hyperventilation was not performed. Photic stimulation at flash frequencies of 2-30 Hz produced a good symmetrical occipital driving response. No epileptiform discharges were seen. IMPRESSION: This EEG is mildly abnormal in diffuse fashion due to slight slowing of the EEG background. The EEG failed to reveal any focal lateralized or epileptiform abnormalities. Clinical correlation is recommended. MICHELLD
[2017-01-31 05:51] LABS: Glucose,Whole Blood 99 mg/dL (75-99)
[2017-01-31] MEDS: INSULIN LISPRO (humaLOG) 300 UNIT/3 ML VIAL SQ SCH ×2 (06:17→12:26)
[2017-01-31] MEDS: ASPIRIN 325 MG TAB PO SCH (08:26)
[2017-01-31] MEDS: SERTRALINE 100 MG TAB PO SCH (08:26)
[2017-01-31] MEDS ORDERED: IV FLUID CONTINUATION 800 ML IV ONE (08:46)
[2017-01-31] MEDS: BENZOCAINE SPRAY 100 APPLIC/CAN MUCOUS MEM ONE ×2 (08:54→09:01)
[2017-01-31] MEDS ORDERED: MIDAZOLAM 2 MG/2 ML VIAL IVP ONE (09:04)
[2017-01-31] MEDS ORDERED: fentaNYL (PF) 50 MCG/ML 2 ML AMP IV ONE (09:04)
[2017-01-31] MEDS ORDERED: SODIUM CHLORIDE 0.9% 1,000 ML IV SCH (09:30)
[2017-01-31 09:32] VITALS: PULSE 73
[2017-01-31] MEDS ORDERED: IV FLUID CONTINUATION 700 ML IV ONE (09:57)
[2017-01-31] MEDS ORDERED: LIDOCAINE 2% INJ 20 MG/ML SQ ONE (09:57)
[2017-01-31] MEDS: SODIUM CHLORIDE 0.9% 1,000 ML IV SCH (11:29)
[2017-01-31 11:41] LABS: Glucose,Whole Blood 133 mg/dL (75-99)
[2017-01-31] MEDS: LINAGLIPTIN 5 MG TABLET PO SCH (12:24)
[2017-01-31] MEDS: metFORMIN 500 MG TAB PO SCH (12:24)
[2017-01-31] MEDS: CHOLECALCIFEROL 1,000 UNIT TAB PO SCH (12:26)
[2017-01-31] MEDS: FERROUS SULFATE 325 MG TAB PO SCH (12:26)
[2017-01-31 12:36] VITALS: BP 139/82; TEMP 96.7
--- NOTE | 2017-01-31 13:17 | ECHOT ---
INDICATION FOR EVALUATION: Intracardiac thrombus. PROCEDURE: After explaining the procedure to the patient as well as risks and complications, his blood pressure, heart rate, O2 saturation was monitored. The throat was spray with Cetacaine. He received 2 mg intravenous Versed, 50 mcg of intravenous fentanyl. After obtaining moderate conscious sedated state, the problem was introduced into the esophagus without difficulty. Images were obtained. Following that, the probe was removed. There was no immediate complication. FINDINGS: Left atrial size is mildly dilated. Left atrial appendage is normal. Left ventricular size is normal. The inferior wall and inferoseptal wall were hypokinetic. Estimated ejection fraction 45%. The aortic valve, mitral valve and tricuspid valve are normal. Descending thoracic aorta appears to be normal. No pericardial effusion was noted. Contrast bubble study revealed no evidence of shunting across the interatrial septum with Valsalva maneuver. Doppler pulse wave and color Doppler obtained and revealed mild mitral and tricuspid regurgitation. There was no shunting by color Doppler study. CONCLUSION: 1. Mildly dilated left atrium with normal appearance left atrial appendage. 2. Normal left ventricular size with evidence of inferior and inferoseptal hypokinesis and a mildly impaired left ventricular systolic function. 3. Mild mitral and tricuspid regurgitation. 4. No evidence of shunting by color Doppler study and contrast bubble study. 5. Normal appearance of the descending thoracic aorta. [facility]
--- NOTE | 2017-01-31 14:48 | XR ---
EXAMINATION TYPE: XR chest 1V DATE OF EXAM: 01/31/2017 HISTORY: R/O CHF. REFERENCE: Previous study dated 01/29/2017. FINDINGS: There is chronic appearing elevation of the right hemidiaphragm. Heart size is largely obsc ured. There is atelectatic change at the right lung base. The lungs are otherwise clear. Pleural spac es appear clear. IMPRESSION: NO SIGNIFICANT INTERVAL CHANGE IN COMPARISON WITH THE PREVIOUS STUDY.
[2017-01-31] MEDS ORDERED: BACLOFEN 10 MG TAB PO PRN (14:54)
--- NOTE | 2017-01-31 14:58 | PN ---
Mr. Adhikari is doing well. He had a transesophageal echo. We did not reveal any evidence of thrombus. He has no shunts. His LV dysfunction is noted. Inferior wall is slightly hypokinetic. Given his recent stroke, I will not do any intervention. I performed a loop recorder for him uneventfully. He remains in sinus rhythm. Vital signs are stable. S1, S2 heart normally. Lungs are clear. Abdomen and lower extremity exam unchanged. Upon discharge, we will see him in the office in 1 week. BENJAMIN
--- NOTE | 2017-01-31 15:27 | P.DS ---
Providers Date of admission: 01/29/17 17:08 Attending physician: Samuel Duron Consults: 01/29/17 17:11 Consult Physician Routine Consulting Provider: Raina Levy Consult Reason/Comments: cva Do you want consulting provider notified?: Yes 01/30/17 04:55 Consult Physician Stat Consulting Provider: Sudhakar Vargas Consult Reason/Comments: elevated troponin Do you want consulting provider notified?: Yes Primary care physician: [facility] Hospital Course: 66-year-old male came in with right-sided weakness found to have a stroke on MRI left holloway radiate, carotid Doppler, CT angiography head and neck did not show any significant occlusive disease. Patient has decreased ejection fraction was evaluated by cardiology patient is minimally elevated troponin as well although denied any chest pain patient does have some right bundle branch block pattern on the check on the EKG patient was evaluated by cardiology. cardiology is recommending a monitor because of possible Atrial fibrillation contributing to this stroke. Today to subacute rehabilitation on aspirin 325 mg. Patient has minimal improvement in right-sided strength. 1 Ischemic stroke the left holloway radiate involving the right side of the body. Patient is on aspirin, a statin. 2 congestive heart failure possibly due to chronic systolic dysfunction: Patient only has minimally depressed ejection fraction of 40 with 50% patient is not in exacerbation because of which I'm not starting him on any any heart failure medications at this point of time I'm expecting it will improve on repeat echocardiogram probably in a month or so. 3 minimally elevated troponin 1 set not high enough to say.non-ST elevation. Cardiology evaluated the patient. There is a concern of atrial fibrillation which we are not seeing here. Because of which patient will be discharged on Holter monitor. #4 Type2 diabetes mellitus: 5 depression Patient Condition at Discharge: Good Plan - Discharge Summary New Discharge Prescriptions: New Aspirin 325 mg PO DAILY tab Atorvastatin [Lipitor] 40 mg PO HS tab fentaNYL 50MCG/HR PATCH [Duragesic 50MCG/HR] 1 patch TRANSDERM Q72H #5 patch Continue sitaGLIPtin PHOS/metFORMIN HCL [Janumet 50-1,000 mg Tablet] 1 tab PO DAILY Glimepiride [Amaryl] 2 mg PO DAILY Ferrous Sulfate [Iron (65 MG Elemental)] 325 mg PO DAILY Cholecalciferol [Vitamin D3] 2,000 unit PO DAILY fentaNYL 75MCG/HR PATCH [Duragesic 75MCG/HR] 1 patch TRANSDERM Q72H Sertraline [Zoloft] 100 mg PO DAILY Omeprazole 20 mg PO DAILY Losartan Potassium [Cozaar] 25 mg PO DAILY Dapagliflozin Propanediol [Farxiga] 10 mg PO DAILY Baclofen 10 mg PO TID PRN #30 PRN Reason: Muscle Spasm HYDROcodone/APAP 10-325MG [[place] 10-325] 1 tab PO Q6H PRN #30 PRN Reason: Pain Discontinued Aspirin EC [Ecotrin Low Dose] 81 mg PO DAILY Discharge Medication List Cholecalciferol [Vitamin D3] 2,000 unit PO DAILY 01/29/17 [History] Dapagliflozin Propanediol [Farxiga] 10 mg PO DAILY 01/29/17 [History] Ferrous Sulfate [Iron (65 MG Elemental)] 325 mg PO DAILY 01/29/17 [History] Glimepiride [Amaryl] 2 mg PO DAILY 01/29/17 [History] Losartan Potassium [Cozaar] 25 mg PO DAILY 01/29/17 [History] Omeprazole 20 mg PO DAILY 01/29/17 [History] Sertraline [Zoloft] 100 mg PO DAILY 01/29/17 [History] fentaNYL 75MCG/HR PATCH [Duragesic 75MCG/HR] 1 patch TRANSDERM Q72H 01/29/17 [ History] sitaGLIPtin PHOS/metFORMIN HCL [Janumet 50-1,000 mg Tablet] 1 tab PO DAILY 01/29 [History] Aspirin 325 mg PO DAILY tab 01/31/17 [Rx] Atorvastatin [Lipitor] 40 mg PO HS tab 01/31/17 [Rx] Baclofen 10 mg PO TID PRN #30 01/31/17 [Rx] HYDROcodone/APAP 10-325MG [[place] 10-325] 1 tab PO Q6H PRN #30 01/31/17 [Rx] fentaNYL 50MCG/HR PATCH [Duragesic 50MCG/HR] 1 patch TRANSDERM Q72H #5 patch [Rx] Follow up Appointment(s)/Referral(s): Michel Rossi MD [STAFF PHYSICIAN] - 1 Week (Office will call you with date and time. You will be seen in the device clinic that day as well. No anticoagulation at this time per Dr. Rossi. ) Raina Levy MD [STAFF PHYSICIAN] - 02/15/17 10:15 am Justice Segovia MD [Primary Care Provider] - 02/05/17 10:30 am Discharge Disposition: TRANSFER TO SNF/ECF
--- NOTE | 2017-01-31 22:41 | PCN ---
PROCEDURE: Loop recorder insertion. PERFORMED BY: Dr. Kaden Rossi CLINICAL INFORMATION: Mr. Mike Adhikari is a 66-year-old gentleman with a history of diabetes and hypertension who presented with a right-sided hemiparesis and has been in a sinus rhythm without any evidence of atrial fibrillation. His carotids are normal. In view of his cryptogenic stroke, I have advised him to have a loop recorder. Risks, benefits, options and rationale were explained. PROCEDURE NOTE: Under local anesthesia and strict aseptic precautions, a loop recorder was inserted in the left fourth intercostal space. A single suture was used. Insertion went very smoothly without any complication. Patient tolerated the procedure well. The signal was excellent with 1.2 mV. Cryptogenic protocol settings were made and patient will be seen in the office in one week. There was no family to talk to, but I discussed the details with the patient. BENJAMIN
== END 2017-01-31 16:19 | DRG 41 ==
LOC: EC 14:55 → 6SEL 17:08
PROVIDERS: ADMIT Hospitalist; ATTEND Hospitalist
PROC: 0JH632Z Insertion of Monitoring Device into Chest Subcutaneous Tissue and Fascia, Percutaneous Approach (ICD-10-PCS; principal; 2017-01-30)
PROC: B245ZZ4 Ultrasonography of Left Heart, Transesophageal (ICD-10-PCS; 2017-01-31)
DX: I63.9 Cerebral infarction, unspecified (principal); G81.91 Hemiplegia, unspecified affecting right dominant side; I50.22 Chronic systolic (congestive) heart failure; I11.0 Hypertensive heart disease with heart failure; E11.42 Type 2 diabetes mellitus with diabetic polyneuropathy; R29.810 Facial weakness; E78.00 Pure hypercholesterolemia, unspecified; E78.5 Hyperlipidemia, unspecified; F32.9 Major depressive disorder, single episode, unspecified; G89.29 Other chronic pain; M54.5 Low back pain; R74.8 Abnormal levels of other serum enzymes; Z79.84 Long term (current) use of oral hypoglycemic drugs; Z79.82 Long term (current) use of aspirin; Z79.899 Other long term (current) drug therapy; Z85.828 Personal history of other malignant neoplasm of skin; Z86.73 Personal history of transient ischemic attack (TIA), and cerebral infarction without residual deficits
CPT/HCPCS: 33282; 36415; 70450; 70496; 70498; 70551; 71010; 71020; 80048; 80053; 80061; 82550; 82553; 83036; 83735; 84100; 84484; 85025; 85610; 85730; 93005; 93306; 93312; 93320; 93325; 93880; 94760; 95816; 96360; 96361; 99291

== ENCOUNTER → 2017-04-14 | Outpatient (CLI) | payer MEDICARE ==
[2017-04-14 13:04] LABS: Anisocytosis Slight; CH 35.9; CHCM 31.6; HCT 44.9 % (39.0-53.0); HDW 3.01; HGB 13.9 gm/dL (13.0-17.5); Hypochromasia Slight; MCH 35.4 pg (25.0-35.0); MCHC 30.9 g/dL (31.0-37.0); MCV 114.6 fL (80.0-100.0); Macrocytosis Marked; Mean Platelet Volume 8.6; RBC 3.92 m/uL (4.30-5.90); RDW 18.2 % (11.5-15.5); WBC 14.9 k/uL (3.8-10.6)
[2017-04-14 13:17] LABS: Anion Gap 9 mmol/L; Blood Urea Nitrogen 21 mg/dL (9-20); Carbon Dioxide 28 mmol/L (22-30); Chloride 104 mmol/L (98-107); Non-African American GFR(MDRD) >60 (>60 ml/min/1.73 sqM); Potassium 4.9 mmol/L (3.5-5.1); Sodium 141 mmol/L (137-145)
== END | disposition home or self-care (01) ==
LOC: LABWHC1 12:41
PROVIDERS: ATTEND Internal Medicine Interventional Cardiology
DX: Z01.812 Encounter for preprocedural laboratory examination (principal); I25.118 Atherosclerotic heart disease of native coronary artery with other forms of angina pectoris
CPT/HCPCS: 80051; 82565; 84520; 85027

== ENCOUNTER 2017-05-08 06:15 | Day surgery (SDC) | payer MEDICARE ==
[2017-05-03 09:02] VITALS: BMI 26.9
[2017-05-08] MEDS ORDERED: ASPIRIN 325 MG TAB PO STA (06:41)
[2017-05-08] MEDS ORDERED: ATORVASTATIN 80 MG TAB PO STA (06:41)
[2017-05-08] MEDS ORDERED: SODIUM CHLORIDE 0.9% 1,000 ML in EMPTY BAG 1 BAG IV ONE (06:41)
[2017-05-08] MEDS ORDERED: NITROGLYCERIN SL TABS 0.4 MG TAB SUBLINGUAL PRN (06:41)
[2017-05-08] MEDS ORDERED: ALPRAZolam 0.25 MG TAB PO PRN (06:41)
[2017-05-08] MEDS ORDERED: ALPRAZolam 0.5 MG TAB PO PRN (06:41)
[2017-05-08] MEDS ORDERED: SODIUM CHLORIDE 0.9% 1,000 ML IV ONE (06:45)
[2017-05-08 07:00] LABS: Glucose,Whole Blood 109 mg/dL (75-99)
[2017-05-08 07:08] VITALS: RESP 16; TEMP 98.6
[2017-05-08] MEDS ORDERED: MIDAZOLAM 2 MG/2 ML VIAL IV ONE (07:30)
[2017-05-08] MEDS ORDERED: diphenhydrAMINE 50 MG/ML 1 ML VIAL IVP ONE (07:31)
[2017-05-08] MEDS: LIDOCAINE 2% INJ 20 MG/ML SQ ONE ×2 (07:34→07:52)
[2017-05-08] MEDS ORDERED: NITROGLYCERIN SL TABS 0.4 MG TAB SUBLINGUAL ONE ×2 (07:55→08:04)
[2017-05-08 08:03] LABS: Anisocytosis Slight; Basophils # (A) 0.1 k/uL (0-0.2); Basophils % (A) 1 %; CH 36.7; CHCM 33.3; Eosinophils # (A) 0.2 k/uL (0-0.7); Eosinophils % (A) 2 %; HCT 42.5 % (39.0-53.0); HDW 3.14; HGB 13.3 gm/dL (13.0-17.5); Luc # (Auto) 0.32; Luc % (Auto) 3; Lymphocytes # (A) 7.2 k/uL (1.0-4.8); Lymphocytes % (A) 57 %; MCH 34.8 pg (25.0-35.0); MCHC 31.3 g/dL (31.0-37.0); MCV 111.3 fL (80.0-100.0); Macrocytosis Marked; Monocytes # (A) 0.6 k/uL (0-1.0); Monocytes % (A) 5 %; Neutrophils # (A) 4.2 k/uL (1.3-7.7); Neutrophils % (A) 34 %; RBC 3.82 m/uL (4.30-5.90); RDW 18.3 % (11.5-15.5); WBC 12.6 k/uL (3.8-10.6); WBC (Perox) 13.17
[2017-05-08] MEDS ORDERED: IODIXANOL 320 MG/ML 100 ML INTRAARTER ONE (08:04)
[2017-05-08 08:18] LABS: Anion Gap 9 mmol/L; Blood Urea Nitrogen 26 mg/dL (9-20); Calcium 8.6 mg/dL (8.4-10.2); Carbon Dioxide 25 mmol/L (22-30); Chloride 107 mmol/L (98-107); Glucose 110 mg/dL (74-99); Non-African American GFR(MDRD) >60 (>60 ml/min/1.73 sqM); Potassium 4.9 mmol/L (3.5-5.1); Sodium 141 mmol/L (137-145)
[2017-05-08 08:23] LABS: Manual Review Performed
[2017-05-08] MEDS ORDERED: RX INFO: IV CONTRAST WAS GIVEN 1 EACH MISC MISCELLANE PRN (08:27)
[2017-05-08] MEDS ORDERED: SODIUM CHLORIDE 0.9% 1,000 ML IV SCH (08:30)
--- NOTE | 2017-05-08 09:13 | CC ---
CARDIAC CATHETERIZATION REPORT DATE OF SERVICE: 05/08/2017 PROCEDURE: Left heart catheterization, coronary angiography and left ventriculography. PERFORMED BY: Dr. Linh Rossi. Moderate conscious sedation time of 36 minutes. CLINICAL INFORMATION: Mr. Mike Adhikari is a 67-year-old gentleman who with a history of recent TIA, ejection fraction in the 45% range with some wall motion abnormalities and abnormal stress test with inferior wall fixed defect with a global as well as regional disease. The clinical picture suggested that of multivessel disease. He was advised coronary angiography. Risks, benefits, options and rationale were explained. The patient is a [employer]. PROCEDURE NOTE: I initially attempted access from the right radial, but because of a very feeble pulse, I could not gain access. I applied manual pressure and put a pressure bandage over the right radial site and then attempted from the right femoral approach. Under strict aseptic precautions and local anesthesia, a 6-Malawian sheath was placed in the right femoral artery. Using standard Misbah catheters and a pigtail catheter, I performed coronary angiography and left ventriculography. The sheath was taken out and an Angio- Seal device used to secure hemostasis and patient was sent to the room in a stable condition. Moderate conscious sedation was provided for 36 minutes with a combination of Versed and Benadryl. CARDIAC CATHETERIZATION FINDINGS: The left ventricular end-diastolic pressure was about 22 mmHg and went up to 24 mmHg after the LV gram. There was no gradient across aortic valve. CORONARY ANGIOGRAPHY FINDINGS: RIGHT CORONARY ARTERY: Technically a dominant vessel has no significant disease. Distally, it bifurcates into a smaller PLV, larger PDA; both of which supply a fair amount of myocardium. There is no significant disease in the dominant RCA. LEFT MAIN CORONARY ARTERY: Short patent disease-free vessel that bifurcates into LAD and circumflex. LEFT ANTERIOR DESCENDING CORONARY ARTERY: Good caliber vessel, extends along the anterior wall, gives off septal and diagonal branches. There is no significant disease in the entire LAD system. There is a good-sized diagonal in the proximal portion, free of significant disease. Smaller septal branches are free of significant disease. It curves over the apex and supplies a portion of the inferoapical wall. LAD, therefore, has no significant disease. LEFT POSTERIOR CIRCUMFLEX CORONARY ARTERY: Technically nondominant good caliber vessel, gives off a small obtuse marginal from the proximal portion. Distally it bifurcates in 2 branches that supply a fair amount of myocardium. There is no significant disease in the entire circumflex system. LEFT VENTRICULOGRAM: This was performed in 30-degree PEREZ projection. It revealed left ventricle which is mildly enlarged with a global decrease in contractility. Estimated ejection fraction of about 35% by visual inspection. There is also mild mitral regurgitation noted. FINAL IMPRESSION: This patient has a right dominant system. Increased filling pressures with a global decrease in contractility, estimated ejection fraction of 30% to 35% without significant obstructive coronary artery disease. RECOMMENDATION: I am recommending aggressive medical therapy with ROXANNA inhibitors and beta blockers and based on clinical course, I will make further recommendations. Findings were discussed with the patient and . I expect he will be discharged later on today. MMODL / IJN: [id number] /
--- NOTE | 2017-05-08 09:19 | LTR ---
May 08, [address] Segovia: Thank you for the opportunity to participate in the care of Mr. Adhikari. This gentleman has what seems to be nonischemic cardiomyopathy with elevated filling pressures, global decrease in contractility but no significant obstructive CAD. He may require an ICD down the road if his LV function does not improve. We will continue current medical regimen for the time being and he will be discharged later on today if he remains stable. Thank you for your referral and please call for questions. With kindest regards. Sincerely yours, MD ROB HardenL / JOAN: [id number] /
[2017-05-08 12:16] VITALS: PULSE 60
[2017-05-08 16:11] VITALS: BP 139/65
--- NOTE | 2017-05-09 10:49 | ECHOF ---
Referral Reason:evaluate LV function MEASUREMENTS -------- HEIGHT: 162.6 cm WEIGHT: 71.2 kg BP: 134/70 IVSd: 1.2 cm (0.6 - 1.1) LVIDd: 4.8 cm (3.9 - 5.3) LVPWd: 1.3 cm (0.6 - 1.1) IVSs: 1.6 cm LVIDs: 3.5 cm LVPWs: 1.7 cm LAESV Index (A-L): 21.66 ml/m Ao Diam: 2.9 cm (2.0 - 3.7) AV Cusp: 1.8 cm (1.5 - 2.6) LA Diam: 4.0 cm (2.7 - 3.8) MV EXCURSION: 18.395 mm (> 18.000) MV EF SLOPE: 68 mm/s (70 - 150) EPSS: 1.0 cm MV E Dagoberto: 0.54 m/s MV DecT: 339 ms MV A Dagoberto: 0.83 m/s MV E/A Ratio: 0.65 RAP: 5.00 mmHg RVSP: 15.57 mmHg FINDINGS -------- Sinus rhythm. This was a technically adequate study. The left ventricular size is normal. There is mild concentric left ventricular hypertrophy. Overall left ventricular systolic function is mild-moderately impaired with, an EF between 40 - 45 %. Posterior Hypokinesis. The right ventricle is normal in size. The right atrial size is normal. There is mild aortic valve sclerosis. There is no evidence of aortic regurgitation. Mild mitral annular calcification present. Mild mitral regurgitation is present. Mild tricuspid regurgitation present. There is no evidence of pulmonary hypertension. The right ventricular systolic pressure, as measured by Doppler, is 15.57mmHg. There is no pulmonic regurgitation present. The aortic root size is normal. There is no pericardial effusion. CONCLUSIONS -------- 1. The left ventricular size is normal. 2. The right ventricular systolic pressure, as measured by Doppler, is 15.57mmHg. 3. There is no pulmonic regurgitation present. 4. The aortic root size is normal. 5. There is no pericardial effusion. 6. There is mild concentric left ventricular hypertrophy. 7. Overall left ventricular systolic function is mild-moderately impaired with, an EF between 40 - 45 %. 8. Posterior Hypokinesis. 9. There is mild aortic valve sclerosis. 10. Mild mitral annular calcification present. 11. Mild mitral regurgitation is present. 12. Mild tricuspid regurgitation present. 13. There is no evidence of pulmonary hypertension. L[employer] WIRE FAB[employer]IC MACHINE OPERATOR: Carolyn Harris RDCS
== END 2017-05-08 16:00 | disposition home or self-care (01) ==
LOC: CATHCVL 06:15
PROVIDERS: ATTEND Internal Medicine Interventional Cardiology
DX: I08.3 Combined rheumatic disorders of mitral, aortic and tricuspid valves (principal); E78.00 Pure hypercholesterolemia, unspecified; I10 Essential (primary) hypertension; E11.9 Type 2 diabetes mellitus without complications; Z79.84 Long term (current) use of oral hypoglycemic drugs; Z82.49 Family history of ischemic heart disease and other diseases of the circulatory system; Z79.82 Long term (current) use of aspirin; Z79.891 Long term (current) use of opiate analgesic; Z79.899 Other long term (current) drug therapy
CPT/HCPCS: 93306; 93458; 80048; 85025; C1769 ×3; C1760; C1894 ×3; J2001; J2250; J1200; Q9967

== ENCOUNTER → 2017-05-23 | Outpatient (CLI) | payer MEDICARE ==
[2017-05-23 09:56] LABS: ALT 48 U/L (21-72); AST 35 U/L (17-59); Alkaline Phosphatase 55 U/L (38-126); Anion Gap 11 mmol/L; Blood Urea Nitrogen 22 mg/dL (9-20); Calcium 9.3 mg/dL (8.4-10.2); Carbon Dioxide 28 mmol/L (22-30); Chloride 104 mmol/L (98-107); Cholesterol 100 mg/dL (<200); Creatine Kinase 38 U/L (55-170); Glucose 173 mg/dL (74-99); HDL Cholesterol 50 mg/dL (40-60); Non-African American GFR(MDRD) >60 (>60 ml/min/1.73 sqM); Potassium 5.5 mmol/L (3.5-5.1); Sodium 143 mmol/L (137-145); Total Bilirubin 0.7 mg/dL (0.2-1.3); Total Protein 7.7 g/dL (6.3-8.2)
[2017-05-23 10:13] LABS: Anisocytosis Slight; Basophils # (A) 0.1 k/uL (0-0.2); Basophils % (A) 1 %; CH 35.8; CHCM 31.9; Eosinophils # (A) 0.2 k/uL (0-0.7); Eosinophils % (A) 1 %; HCT 46.1 % (39.0-53.0); HGB 14.3 gm/dL (13.0-17.5); Luc % (Auto) 3; Lymphocytes # (A) 8.3 k/uL (1.0-4.8); Lymphocytes % (A) 53 %; MCH 35.1 pg (25.0-35.0); MCV 113.1 fL (80.0-100.0); Macrocytosis Marked; Mean Platelet Volume 8.3; Monocytes # (A) 0.7 k/uL (0-1.0); Monocytes % (A) 4 %; Neutrophils # (A) 5.9 k/uL (1.3-7.7); Neutrophils % (A) 38 %; RBC 4.08 m/uL (4.30-5.90); RDW 16.9 % (11.5-15.5); WBC 15.7 k/uL (3.8-10.6); WBC (Perox) 15.23
[2017-05-23 11:22] LABS: Howell-Jolly Bodies Present; Target Cells Present
[2017-05-23 11:23] LABS: Manual Review Performed
== END | disposition home or self-care (01) ==
LOC: LABWHC1 08:14
PROVIDERS: ATTEND Internal Medicine
DX: E78.5 Hyperlipidemia, unspecified (principal); I42.9 Cardiomyopathy, unspecified; I50.9 Heart failure, unspecified; R53.83 Other fatigue; Z11.59 Encounter for screening for other viral diseases
CPT/HCPCS: 36415; 80053; 80061; 80074; 82550; 85025

== ENCOUNTER 2017-08-15 07:01 | Day surgery (SDC) | payer MEDICARE ==
[2017-08-13 12:05] VITALS: BMI 25.0
[~2017-08-15 07:01] MED LIST: LACTATED RINGERS 1,000 ML IV SCH
[2017-08-15 07:28] VITALS: RESP 18; TEMP 97.1
[2017-08-15] MEDS ORDERED: LIDOCAINE 1% 20 ML VIAL (10MG/ML) FOR IV START INTRADERMA ONE (07:37)
[2017-08-15 07:42] LABS: Glucose,Whole Blood 113 mg/dL (75-99)
[2017-08-15] MEDS ORDERED: LIDOCAINE 1% INJ 10MG/ML (20 ML MDV) ONE (08:09)
[2017-08-15] MEDS ORDERED: PROPOFOL 10 MG/ML 20 ML VIAL IV ONE (08:09)
--- NOTE | 2017-08-15 08:27 | P.PCN ---
Date of Procedure: 08/15/17 Procedure(s) Performed: BRIEF HISTORY: Patient is a 67-year-old pleasant white male, scheduled for an elective colonoscopy as a part of screening for colorectal neoplasia. PROCEDURE PERFORMED: Colonoscopy. PREOPERATIVE DIAGNOSIS: Screening for colon cancer. IV sedation per Anesthesia. PROCEDURE: After informed consent was obtained, the patient, was brought into the endoscopy unit. IV sedation was administered by Anesthesia under continuous monitoring. Digital rectal examination was normal. Initially the Olympus CF- 160 flexible video colonoscope was then inserted in the rectum, gradually advanced into the cecum without any difficulty. Careful examination was performed as the scope was gradually being withdrawn. Ileocecal valve and the appendiceal orifice were visualized and appeared normal. Prep was excellent. Mucosa of the cecum, ascending colon, transverse colon, descending colon, sigmoid colon, and rectum appeared normal. Retroflexion was performed in the rectum and no lesions were seen. The patient tolerated the procedure well. IMPRESSION: Normal-appearing colon from rectum to cecum with no evidence of colorectal neoplasia. RECOMMENDATIONS: Findings of this examination were discussed with the patient as well as his family. He was advised to have a repeat screening colonoscopy in 10 years.
[2017-08-15 08:46] VITALS: PULSE 63
[2017-08-15 09:11] VITALS: BP 152/73
== END 2017-08-15 09:32 | disposition home or self-care (01) ==
LOC: ORWHC2ENDO 07:01
PROVIDERS: ATTEND Internal Medicine Gastroenterology
DX: Z12.11 Encounter for screening for malignant neoplasm of colon (principal); I10 Essential (primary) hypertension; E78.5 Hyperlipidemia, unspecified; E11.9 Type 2 diabetes mellitus without complications; N40.0 Benign prostatic hyperplasia without lower urinary tract symptoms; Z86.73 Personal history of transient ischemic attack (TIA), and cerebral infarction without residual deficits; Z79.891 Long term (current) use of opiate analgesic; Z79.84 Long term (current) use of oral hypoglycemic drugs; Z79.899 Other long term (current) drug therapy; Z88.8 Allergy status to other drugs, medicaments and biological substances
CPT/HCPCS: J2001; J2704; G0121; 45378

== ENCOUNTER → 2018-02-08 | Outpatient (CLI) | payer MEDICARE ==
--- NOTE | 2018-02-08 09:46 | MR ---
EXAMINATION TYPE: MR lumbar spine wo/w con DATE OF EXAM: 02/08/2018 COMPARISON: NONE HISTORY: Back pain TECHNIQUE: T1 and T2 axial and sagittal images of the lumbar spine are submitted. FINDINGS: There is no abnormal signal seen within the visualized spinal cord or paraspinal soft tissu es. There is diffuse heterogeneous pattern to the marrow. Enhancement is seen postcontrast. At L1-2 there is there is a large herniation resulting in severe thecal sac compression. Both nerve r oots are compressed greater on the left. Appears to originate at the level just below the level of th e conus medullaris and is markedly progressed from the prior exam. Facet arthropathy also noted with degenerative disc disease. Some limitation exam due to motion artifact and question history of previo us surgical intervention at this level. Correlate with surgical history. At L2-3 there is facet arthropathy and circumferential disc bulging. No foraminal encroachment or can al stenosis. At L3-4 there is broad-based disco bulging greater paracentrally and laterally to left with moderate effacement of thecal sac. Facet arthropathy and ligamentum flavum hypertrophy contribute to canal sneha nosis. Mild bilateral foraminal encroachment. Finding progressed from prior exam At L4-5 there is degenerative disc disease with broad-based central and left paracentral disc protrus ion and mild effacement of thecal sac. There is central stenosis and facet arthropathy with ligamentu m flavum hypertrophy. Moderate left foraminal encroachment and mild right foraminal encroachment. At L5-S1 there is facet arthropathy. Very minimal central disc bulging but no canal stenosis or bentley inal encroachment. IMPRESSION: 1. There is a large central disc herniation slightly greater paracentrally to left resulting in sever e distortion and compression of the thecal sac just below the level the conus medullaris. Nerve root compression and severe spinal stenosis noted. Report called to the patient's physician report was fax ed to the patient's office. 2. There is diffuse patchy and heterogeneous marrow signal throughout the visualized osseous structur es. This appears progressed from the prior exam. Although this can be seen with severe osteopenia oth er considerations and the differential diagnosis should include lymphoproliferative disorder, blood d yscrasia, or infiltrating marrow process. Correlate clinically recommended. 3. Multilevel degenerative disc disease with progression of disc bulging at L3-4. Central stenosis an d foraminal encroachment as discussed above. 4. Disc bulging or protrusion with hypertrophic changes at L4-5 contributes to canal stenosis. Bilate ral foraminal encroachment noted.
== END | disposition home or self-care (01) ==
LOC: RADMRIMAIN 07:31
PROVIDERS: ATTEND Family Medicine
DX: M48.061 Spinal stenosis, lumbar region without neurogenic claudication (principal); M51.16 Intervertebral disc disorders with radiculopathy, lumbar region; G95.29 Other cord compression
CPT/HCPCS: 82565; 72158; 36415; A9581

== ENCOUNTER → 2018-05-02 | Outpatient (CLI) | payer MEDICARE ==
--- NOTE | 2018-05-02 12:18 | MR ---
EXAMINATION TYPE: MR bryanine/renita wo con DATE OF EXAM: 05/02/2018 COMPARISON: NONE HISTORY: Spondylosis / Spinal stenosis TECHNIQUE: T1 and T2 axial and sagittal images of the lumbar spine are submitted. FINDINGS: Motion artifact limits assessment of the paraspinal soft tissues and spinal cord. At L1-2 there is there remains a very large disc herniation at L1-L2 which results in severe compress ion of the thecal sac and cauda equina. Extruded disc fragment extending posterior to the upper heather n of L2 noted. Suspect some degree of impingement of the exiting nerve roots greater on the left. Fin ding is similar to the prior exam. Findings also suggest possible previous surgery at this level noe elate clinically. At L2-3 there is marked facet arthropathy. Circumferential disc bulging. No Canal stenosis. Neural fo ramina patent. At L3-4 there is severe degenerative disc disease with broad-based disc bulging, facet arthropathy an d ligamentum flavum hypertrophy. Findings result in moderate canal. At L4-5 there is diffuse disc bulging with hypertrophy ligamentum flavum and facets. Bulging and prot rusion greater paracentrally to the left. Moderate left foraminal encroachment and mild right foramin al encroachment. There is moderate central stenosis. At L5-S1 there is facet arthropathy with central disc bulging. Mild bilateral foraminal encroachment. No Canal stenosis. Diffuse heterogeneous marrow signal is seen again. IMPRESSION: 1. There is a persistent large disc herniation with severe compression of the thecal sac at L1-L2. 2. Diffuse heterogeneous marrow signal is seen with osteoporosis, marrow reconversion, lymphoprolifer ative disorder, metastasis, or blood dyscrasia correlate clinically. 3. Multilevel degenerative disc disease with disc bulging or protrusion particularly noted at L3-4, L 4-5 appears resulting canal stenosis. EXAMINATION TYPE: MR lashon/renita wo con DATE OF EXAM: 05/02/2018 COMPARISON: 08/04/2010 HISTORY: Spondylosis / Spinal stenosis TECHNIQUE: T1 sagittal and coronal, T2 sagittal, and gradient echo axial views of the cervical spine are submitted. FINDINGS: The cranial cervical junction is preserved. Motion artifact limits assessment spinal cord. Findings suggest area of previous ischemia involving the right cerebellum. At C2-3 there is no disc h erniation or canal stenosis. No foraminal encroachment. At C3-4 there is degenerative disc disease with central disc bulging. Uncovertebral joint hypertrophy and facet arthropathy noted. Mild bilateral foraminal encroachment. Borderline central stenosis. At C4-5 there is degenerative disc disease with posterior disc protrusion. Uncovertebral joint hypert rophy and facet arthropathy are noted with [id number] bilateral foraminal encroachment. Disc os teophyte complex impresses upon the anterior margin the spinal cord resulting in canal stenosis. Find ings are similar to the prior exam. At C5-6 there is degenerative disc disease. Facet arthropathy and uncovertebral joint hypertrophy not ed is broad-based disc protrusion capped by spur. Mild bilateral foraminal encroachment. Borderline t o mild central stenosis. Slight anterolisthesis. At C6-7 there is left paracentral disc herniation results in mild anterior compression the spinal cor d and appears to progressed or new from the prior exam. Facet arthropathy is seen and there is mild l eft foraminal encroachment. Motion artifact limits the assessment. At C7-T1 there is no disc herniation or canal stenosis. No obvious foraminal encroachment. Diffuse heterogeneous marrow signal is again noted. IMPRESSION: 1. Multilevel degenerative disc disease with disc bulging or protrusions at C3-4, C4-5 and C5-C6 whi ch appears similar to the prior exam. Multilevel foraminal encroachment and borderline to mild spinal stenosis as discussed above. 2. There is left paracentral disc herniation now seen at C6-C7 with mild anterior compression of the spinal cord. 3. Diffuse heterogeneous marrow signal is again noted is nonspecific. Severe osteopenia, marrow recon version, lymphoproliferative disorder, blood dyscrasia or metastatic disease in the differential diag nosis.
== END ==
LOC: RADMRIMAIN 09:04
DX: M48.02 Spinal stenosis, cervical region (principal); M48.061 Spinal stenosis, lumbar region without neurogenic claudication; M50.01 Cervical disc disorder with myelopathy, high cervical region; M51.26 Other intervertebral disc displacement, lumbar region; M51.36 Other intervertebral disc degeneration, lumbar region; G95.29 Other cord compression
CPT/HCPCS: 72141; 72148

== ENCOUNTER 2022-01-21 19:19 | Inpatient (IN) | payer MEDICARE ==
--- NOTE | 2022-01-21 19:27 | ED ---
General Adult HPI - General Chief complaint: Neuro Symptoms/Deficit Stated complaint: Stroke-like Symptoms Source: family Mode of arrival: ambulatory Limitations: altered mental status, physical limitation - History of Present Illness Initial comments: Patient brought to the ED by his and granddaughter for evaluation. Per , the patient was last seen normal by his daughter just before taking a nap at noon today (6 hours and 20 minutes prior to ED arrival). Per , she noticed that the patient was having difficulty with his speech and had left- sided weakness just prior to coming to the ED this evening. Per , the patient sustained a stroke about 5 years ago, and he has had residual generalized bilateral weakness since then. denies any known anticoagulant medication that the patient takes besides a daily baby aspirin. denies any known recent trauma or injury. Patient is unable to provide any history at this time secondary to his clinical condition. Code stroke was activated on patient's arrival to the ED. - Related Data Home Medications Medication Instructions Recorded Confirmed Cholecalciferol [Vitamin D3 (25 1,000 unit PO DAILY 01/29/17 01/21/22 Mcg = 1000 Iu)] Omeprazole 20 mg PO DAILY 01/29/17 01/21/22 Sertraline [Zoloft] 100 mg PO DAILY 01/29/17 01/21/22 sitaGLIPtin PHOS/metFORMIN HCL 1 tab PO DAILY 01/29/17 01/21/22 [Janumet 50-1,000 mg Tablet] Metoprolol Tartrate [Lopressor] 25 mg PO BID 04/19/17 01/21/22 Tamsulosin HCl [Flomax] 0.4 mg PO DAILY 04/19/17 01/21/22 Aspirin 81 mg PO DAILY 05/02/17 01/21/22 Diabetic Shot Unknown 1 dose SQ DAILY 01/21/22 01/21/22 Sertraline [Zoloft] 50 mg PO DAILY 01/21/22 01/21/22 Previous Rx's Medication Instructions Recorded Atorvastatin [Lipitor] 40 mg PO HS tab 01/31/17 Allergies Allergy/AdvReac Type Severity Reaction Status Date / Time ROXANNA Inhibitors Allergy increases Verified 01/21/22 20:11 potassium levels Review of Systems ROS Statement: Those systems with pertinent positive or pertinent negative responses have been documented in the HPI. ROS Other: All systems not noted in ROS Statement are negative. 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 hairy cell leukemia, back pain & neuropathy, positive stool test History of Any Multi-Drug Resistant Organisms: None Reported Past Surgical History: Back Surgery, Heart Catheterization Additional Past Surgical History / Comment(s): splenectomy, loop recorder, cataract surg. Past Anesthesia/Blood Transfusion Reactions: No Reported Reaction Past Psychological History: Depression Smoking Status: Never smoker Past Alcohol Use History: None Reported Past Drug Use History: None Reported - Past Family History Mother Family Medical History: Cancer General Exam Limitations: no limitations General appearance: alert Head exam: Present: atraumatic, normocephalic Eye exam: Present: normal appearance, PERRL ENT exam: Present: mucous membranes moist Neck exam: Present: other (Trachea is in midline). Absent: tenderness, meningismus Respiratory exam: Present: normal lung sounds bilaterally. Absent: respiratory distress, wheezes, rales, rhonchi, stridor Cardiovascular Exam: Present: regular rate, normal rhythm, normal heart sounds, other (Normal radial pulses bilaterally) GI/Abdominal exam: Present: soft. Absent: distended, tenderness, guarding Extremities exam: Absent: pedal edema Neurological exam: Present: alert, other (Patient is completely aphasic; left lower facial droop; left hemiparesis; left gordon-neglect; patient localizes to pain in all 4 extremities; NIH stroke scale score = 25) Skin exam: Present: warm, dry, intact, normal color Course Vital Signs 01/21/22 01/21/22 01/21/22 19:21 19:30 19:45 Temperature 97.7 F Pulse Rate 85 95 98 Respiratory 16 18 18 Rate Blood Pressure 131/73 150/87 147/99 O2 Sat by Pulse 93 L 95 96 Oximetry 01/21/22 01/21/22 01/21/22 20:00 20:15 20:30 Temperature Pulse Rate 101 H 95 106 H Respiratory 18 18 18 Rate Blood Pressure 158/100 163/95 151/112 O2 Sat by Pulse 96 95 96 Oximetry 01/21/22 21:00 Temperature Pulse Rate 110 H Respiratory 18 Rate Blood Pressure 173/107 O2 Sat by Pulse 95 Oximetry - Reevaluation(s) Reevaluation #1: 01/21/22 19:53 Case, H&P and pending ED tests were discussed with Dr. Juárez (neurointerventionalist). He states that he will follow up on the patient's CT imaging. He has no further recommendations at this time. 01/21/22 21:33 CT imaging findings were discussed with Dr. Juárez (neurointerventionalist). He agrees with admission for medical management. He has no further recommendations at this time. 01/21/22 21:41 Case, H&P, test results, ED management and my discussion with Dr. Juárez as above were discussed with Dr. Esteban. He agrees with neurology consultation. He has no further recommendations at this time. EKG Findings - EKG Comments: EKG Findings:: EKG is limited secondary to motion; uncertain rhythm-> suspect normal sinus rhythm; ventricular rate of 91 bpm; normal QRS duration; normal QT interval; leftward axis; nonspecific T-wave abnormality Medical Decision Making - Medical Decision Making Patient's symptoms and noncontrast head CT findings are consistent with acute CVA. Patient is not a TPA candidate given the onset of symptoms was greater than 6 hours prior to ED presentation. Patient's CT angiograms head/neck are negative, and so the patient is not a candidate for any interventional procedure either. Will admit the patient to the hospital for medical management and neurology consultation. Patient was given a dose of rectal aspirin in the ED. Dr. Esteban has accepted hospital admission. - Lab Data Result diagrams: 01/21/22 19:46 01/21/22 19:46 Lab Results 01/21/22 01/21/22 01/21/22 Range/Units 19:22 19:46 19:46 WBC 12.5 H (3.8-10.6) k/uL RBC 4.95 (4.30-5.90) m/uL Hgb 16.8 (13.0-17.5) gm/dL Hct 52.0 (39.0-53.0) % MCV 105.1 H (80.0-100.0) fL MCH 33.9 (25.0-35.0) pg MCHC 32.3 (31.0-37.0) g/dL RDW 14.7 (11.5-15.5) % Plt Count 284 (150-450) k/uL MPV 8.9 Neutrophils % 55 % Lymphocytes % 38 % Monocytes % 3 % Eosinophils % 1 % Basophils % 1 % Neutrophils # 6.9 (1.3-7.7) k/uL Lymphocytes # 4.8 (1.0-4.8) k/uL Monocytes # 0.4 (0-1.0) k/uL Eosinophils # 0.2 (0-0.7) k/uL Basophils # 0.2 (0-0.2) k/uL Macrocytosis Moderate Sodium 137 (137-145) mmol/L Potassium 4.9 (3.5-5.1) mmol/L Chloride 100 (98-107) mmol/L Carbon Dioxide 26 (22-30) mmol/L Anion Gap 11 mmol/L BUN 23 H (9-20) mg/dL Creatinine 1.10 (0.66-1.25) mg/dL Est GFR (CKD-EPI)AfAm 77 (>60 ml/min/1.73 sqM) Est GFR (CKD-EPI)NonAf 67 (>60 ml/min/1.73 sqM) Glucose 378 H (74-99) mg/dL POC Glucose (mg/dL) 348 H (70-110) mg/dL POC Glu Mail Carrier And Clerk ID Gavin Escalona Calcium 9.2 (8.4-10.2) mg/dL Total Bilirubin 1.0 (0.2-1.3) mg/dL AST 31 (17-59) U/L ALT 34 (4-49) U/L Alkaline Phosphatase 94 (38-126) U/L Troponin I (0.000-0.034) ng/mL Total Protein 8.0 (6.3-8.2) g/dL Albumin 4.8 (3.5-5.0) g/dL 01/21/22 Range/Units 19:46 WBC (3.8-10.6) k/uL RBC (4.30-5.90) m/uL Hgb (13.0-17.5) gm/dL Hct (39.0-53.0) % MCV (80.0-100.0) fL MCH (25.0-35.0) pg MCHC (31.0-37.0) g/dL RDW (11.5-15.5) % Plt Count (150-450) k/uL MPV Neutrophils % % Lymphocytes % % Monocytes % % Eosinophils % % Basophils % % Neutrophils # (1.3-7.7) k/uL Lymphocytes # (1.0-4.8) k/uL Monocytes # (0-1.0) k/uL Eosinophils # (0-0.7) k/uL Basophils # (0-0.2) k/uL Macrocytosis Sodium (137-145) mmol/L Potassium (3.5-5.1) mmol/L Chloride (98-107) mmol/L Carbon Dioxide (22-30) mmol/L Anion Gap mmol/L BUN (9-20) mg/dL Creatinine (0.66-1.25) mg/dL Est GFR (CKD-EPI)AfAm (>60 ml/min/1.73 sqM) Est GFR (CKD-EPI)NonAf (>60 ml/min/1.73 sqM) Glucose (74-99) mg/dL POC Glucose (mg/dL) (70-110) mg/dL POC Glu Mail Carrier And Clerk ID Calcium (8.4-10.2) mg/dL Total Bilirubin (0.2-1.3) mg/dL AST (17-59) U/L ALT (4-49) U/L Alkaline Phosphatase (38-126) U/L Troponin I 0.014 (0.000-0.034) ng/mL Total Protein (6.3-8.2) g/dL Albumin (3.5-5.0) g/dL - Radiology Data Noncontrast head CT: Cerebral atrophy. Possible grade white matter hypodensity right posterior frontal lobe that could be related to ischemia and is a change compared to old exam. CT angiography head/neck with IV contrast: Negative CT angiogram of the neck. Negative CT angiogram of the brain. No evidence of any significant stenosis. Chest x-ray: There is some mild chronic atelectasis right lung base slightly worse than old exam. Normal heart. Disposition Clinical Impression: Facial droop, Left hemiparesis, Aphasia, Hyperglycemia, CVA (cerebral vascular accident) Disposition: ADMITTED IP TO THIS [facility] Condition: Stable Is patient prescribed a controlled substance at d/c from ED?: No Referrals: Justice Segovia MD [Primary Care Provider] - 1-2 days Time of Disposition: 21:43
[2022-01-21 19:29] LABS: Glucose,Whole Blood 348 mg/dL (70-110)
--- NOTE | 2022-01-21 20:03 | CT ---
EXAMINATION TYPE: CT brain wo con DATE OF EXAM: 01/21/2022 COMPARISON: 01/29/2017 HISTORY: Neuro deficits, code stroke CT DLP: 1196.6 mGycm Automated exposure control for dose reduction was used. There is cerebral cortical atrophy. There is no mass effect or midline shift. No sign of intracranial hemorrhage. The calvarium is intact. There appears to be some subtle hypodensity in the right lead project engineer ior frontal lobe compared to the left. The calvarium is intact. Skull base is intact. IMPRESSION: Cerebral atrophy. Possible grade white matter hypodensity right posterior frontal lobe that could be related to ischemia and is a change compared to old exam.
[2022-01-21 20:21] LABS: Basophils # (A) 0.2 k/uL (0-0.2); Basophils % (A) 1 %; Eosinophils # (A) 0.2 k/uL (0-0.7); Eosinophils % (A) 1 %; HGB 16.8 gm/dL (13.0-17.5); Lymphocytes # (A) 4.8 k/uL (1.0-4.8); Lymphocytes % (A) 38 %; MCH 33.9 pg (25.0-35.0); MCHC 32.3 g/dL (31.0-37.0); MCV 105.1 fL (80.0-100.0); Macrocytosis Moderate; Mean Platelet Volume 8.9; Monocytes # (A) 0.4 k/uL (0-1.0); Monocytes % (A) 3 %; Neutrophils # (A) 6.9 k/uL (1.3-7.7); Neutrophils % (A) 55 %; Platelet Count 284 k/uL (150-450); RBC 4.95 m/uL (4.30-5.90); RDW 14.7 % (11.5-15.5); WBC 12.5 k/uL (3.8-10.6)
[2022-01-21 20:27] LABS: Albumin 4.8 g/dL (3.5-5.0); Calcium 9.2 mg/dL (8.4-10.2); Potassium 4.9 mmol/L (3.5-5.1)
--- NOTE | 2022-01-21 20:35 | CT ---
EXAMINATION TYPE: CT angio head neck DATE OF EXAM: 01/21/2022 COMPARISON: 01/29/2017 HISTORY: stroke like symptoms CT DLP: 521.5 mGycm Automated exposure control for dose reduction was used. CONTRAST: Performed with IV Contrast, patient injected with 65 mL of Isovue 370. Images obtained from the aortic arch to the vertex of the brain with the IV contrast. There are Three -D postprocessed images. There is normal branching pattern of the great vessels on the aortic arch. There is arterial flow in the common internal and external carotid arteries bilaterally. There is fairly normal patency of the carotid artery bifurcations. Minimal calcification seen at the left carotid artery bifurcation. There is arterial flow in both vertebral arteries. There is arterial flow in the vertebral basilar artery system. There is no evidence of carotid or vertebral artery aneurysm or dissection. There is arterial flow in the anterior middle and posterior cerebral arteries bilaterally. No evidenc e of intracranial hemodynamic arterial stenosis. No mass effect. No aneurysm or neovascularity. There is normal enhancement of the venous sinuses. IMPRESSION: Negative CT angiogram of the neck. Negative CT angiogram of the brain. No evidence of any significant stenosis.
[2022-01-21] MEDS ORDERED: SODIUM CHLORIDE 0.9% 1,000 ML IV ONE (20:36)
--- NOTE | 2022-01-21 20:45 | XR ---
EXAMINATION TYPE: XR chest 1V portable DATE OF EXAM: 01/21/2022 COMPARISON: 01/31/2017 HISTORY: Altered mental status TECHNIQUE: FINDINGS: There is elevated right diaphragm. There is some atelectasis right lung base. No heart fail ure. Left lung is clear. Bony thorax is intact. IMPRESSION: There is some mild chronic atelectasis right lung base slightly worse than old exam. Norm al heart.
[2022-01-21] MEDS ORDERED: ASPIRIN 300 MG SUPP RECTAL STA (21:34)
[2022-01-21] MEDS ORDERED: INSULIN REGULAR 100 UNIT/ML VIAL (IM/SQ) SQ STA (21:43)
[2022-01-21] MEDS: SODIUM CHLORIDE 0.9% 1,000 ML IV SCH (22:44)
[2022-01-21] MEDS ORDERED: MORPHINE SULFATE 2 MG/ML SYRINGE IVP STA (23:32)
[2022-01-22] LABS: Glucose,Whole Blood 320 mg/dL (70-110)
--- NOTE | 2022-01-22 00:32 | P.HPIM ---
History of Present Illness H&P Date: 01/21/22 Chief Complaint: aphasia, left sided weakness 71 year old male with Hypertension , DM patient comes in after being found in the evening, less interactive, aphasic with left sided weakness, he was last seen normal before taking a nap around noon time. he normally sleeps a lot during the day. he has history of TIA about 5 years ago however in the ED be indicated that he had the stroke with residual bilateral weakness. Patient unable to provide any meaningful history at this time he is aphasic. Upon arrival to the ED he was last seen normal more than 6 hours ago so he was not a candidate for TPA CT of the brain showed possible stroke in the posterior right frontal lobe. CT angiogram the head and neck showed no abnormalities. Neurology on-call recommended medical management. Patient is on daily aspirin no blood thinners. Denies any history of trauma or falls. No history of A. fib or blood clots. No recent travel or hospitalization. 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 hairy cell leukemia, back pain & neuropathy, positive stool test History of Any Multi-Drug Resistant Organisms: None Reported Past Surgical History: Back Surgery, Heart Catheterization Additional Past Surgical History / Comment(s): splenectomy, loop recorder, cataract surg. Past Anesthesia/Blood Transfusion Reactions: No Reported Reaction Past Psychological History: Depression Smoking Status: Never smoker Past Alcohol Use History: None Reported Past Drug Use History: None Reported - Past Family History Mother Family Medical History: Cancer Medications and Allergies Home Medications Medication Instructions Recorded Confirmed Type Cholecalciferol [Vitamin D3 (25 1,000 unit PO DAILY 01/29/17 01/21/22 History Mcg = 1000 Iu)] Omeprazole 20 mg PO DAILY 01/29/17 01/21/22 History Sertraline [Zoloft] 100 mg PO DAILY 01/29/17 01/21/22 History sitaGLIPtin PHOS/metFORMIN HCL 1 tab PO DAILY 01/29/17 01/21/22 History [Janumet 50-1,000 mg Tablet] Atorvastatin [Lipitor] 40 mg PO HS tab 01/31/17 01/21/22 Rx Metoprolol Tartrate [Lopressor] 25 mg PO BID 04/19/17 01/21/22 History Tamsulosin HCl [Flomax] 0.4 mg PO DAILY 04/19/17 01/21/22 History Aspirin 81 mg PO DAILY 05/02/17 01/21/22 History Diabetic Shot Unknown 1 dose SQ DAILY 01/21/22 01/21/22 History Sertraline [Zoloft] 50 mg PO DAILY 01/21/22 01/21/22 History Allergies Allergy/AdvReac Type Severity Reaction Status Date / Time ROXANNA Inhibitors Allergy increases Verified 01/21/22 20:11 potassium levels Physical Exam Vitals: Vital Signs Temp Pulse Resp BP Pulse Ox 01/21/22 22:30 115 H 18 175/109 95 01/21/22 22:00 112 H 18 172/105 92 L 01/21/22 21:30 108 H 18 149/106 95 01/21/22 21:00 110 H 18 173/107 95 01/21/22 20:30 106 H 18 151/112 96 01/21/22 20:15 95 18 163/95 95 01/21/22 20:00 101 H 18 158/100 96 01/21/22 19:45 98 18 147/99 96 01/21/22 19:30 95 18 150/87 95 01/21/22 19:21 97.7 F 85 16 131/73 93 L Intake and Output 01/21/22 01/21/22 01/22/22 14:59 22:59 06:59 Other: Weight 70.307 kg Constitutional: Patient seems restless and aphasic Eyes: Anicteric sclerae, moist conjunctiva, Pupils equal round reactive to light ENMT: NC/AT Patient is not opening mouth to command Neck: Supple, no masses, or JVD No carotid bruits No thyromegaly Lungs: Clear to auscultation Clear to percussion Normal respiratory effort, no accessory muscle use Cardiovascular: Heart regular in rate and rhythm, No murmurs, gallops, or rubs No peripheral edema Abdominal: Soft Nontender, no guarding, rebound or rigidity Abdomen moving with respiration Normoactive bowel sounds No hepatomegaly, No splenomegaly No palpable mass No abdominal wall hernia noted Skin: Normal temperature, tone, texture, turgor No induration No subcutaneous nodules No rash, lesions No ulcers Extremities: No digital cyanosis No clubbing Pedal pulses intact and symmetrical Radial pulses intact and symmetrical No calf tenderness Psychiatric: Alert however aphasic Neuro follow simple commands. flaccid paralysis over left upper and lower extremity , strength over right upper extremity is 4 /5 and right lower extremity 3/5, right preferred gaze. Does not follow command regarding cranial nerve exam. He couldn't follow commands to assess cerebellum functions Results CBC & Chem 7: 01/21/22 19:46 01/21/22 19:46 Labs: Abnormal Lab Results - Last 24 Hours (Table) 01/21/22 01/21/22 01/21/22 Range/Units 19:22 19:46 19:46 WBC 12.5 H (3.8-10.6) k/uL MCV 105.1 H (80.0-100.0) fL BUN 23 H (9-20) mg/dL Glucose 378 H (74-99) mg/dL POC Glucose (mg/dL) 348 H (70-110) mg/dL 01/21/22 Range/Units 23:59 WBC (3.8-10.6) k/uL MCV (80.0-100.0) fL BUN (9-20) mg/dL Glucose (74-99) mg/dL POC Glucose (mg/dL) 320 H (70-110) mg/dL Assessment and Plan Assessment: Acute CVA CT of the brain showed white matter changes over the posterior right frontal lobe CT angiogram the head and neck no acute pathology Neurology on-call recommended medical management Continue with aspirin and statin Increased in dose Neurochecks Fall precautions Monitor vital signs, permissive hypertension first 24 hours Neurology consultation Aspiration precautions Swallow eval PT/OT evaluation Check echocardiogram Check TSH lipid profile A1c Sinus tachycardia, frequent PVCs , and restless one time dose of morphine 2 mg electrolytes unremarkable no cardiac history DM insulin sliding scale check A1c full code DVT PPX mechanical
[2022-01-22 00:49] LABS: Glucose,Whole Blood 297 mg/dL (70-110)
[2022-01-22] MEDS: INSULIN ASPART (NovoLOG) 100 UNIT/ML VIAL SQ SCH ×5 (00:51→23:57)
[2022-01-22] MEDS ORDERED: ACETAMINOPHEN IV (For NPO) 1,000 MG in EMPTY BAG 1 BAG IVPB ONE (04:00)
[2022-01-22 06:20] LABS: Glucose,Whole Blood 316 mg/dL (70-110)
[2022-01-22 08:15] LABS: Basophils % (A) 0 %; Eosinophils # (A) 0.1 k/uL (0-0.7); Eosinophils % (A) 0 %; HCT 49.7 % (39.0-53.0); HGB 16.3 gm/dL (13.0-17.5); Lymphocytes # (A) 3.7 k/uL (1.0-4.8); Lymphocytes % (A) 22 %; MCH 34.4 pg (25.0-35.0); MCHC 32.7 g/dL (31.0-37.0); MCV 105.2 fL (80.0-100.0); Macrocytosis Moderate; Mean Platelet Volume 8.9; Monocytes # (A) 0.4 k/uL (0-1.0); Monocytes % (A) 2 %; Neutrophils # (A) 12.8 k/uL (1.3-7.7); Neutrophils % (A) 75 %; Platelet Count 260 k/uL (150-450); RBC 4.73 m/uL (4.30-5.90); RDW 15.5 % (11.5-15.5); WBC 17.1 k/uL (3.8-10.6)
[2022-01-22 08:22] LABS: Partial Thromboplastin Time 23.9 sec (22.0-30.0)
[2022-01-22 08:49] LABS: ALT 27 U/L (4-49); AST 28 U/L (17-59); African American GFR (CKD) 71 (>60 ml/min/1.73 sqM); Albumin 4.1 g/dL (3.5-5.0); Alkaline Phosphatase 71 U/L (38-126); Anion Gap 11 mmol/L; Blood Urea Nitrogen 22 mg/dL (9-20); Calcium 8.7 mg/dL (8.4-10.2); Carbon Dioxide 22 mmol/L (22-30); Chloride 107 mmol/L (98-107); Glucose 262 mg/dL (74-99); Non-African American GFR(CKD) 61 (>60 ml/min/1.73 sqM); Potassium 4.7 mmol/L (3.5-5.1); Sodium 140 mmol/L (137-145)
[2022-01-22 11:55] LABS: Glucose,Whole Blood 246 mg/dL (70-110)
--- NOTE | 2022-01-22 12:21 | P.CNNES ---
History of Present Illness Consult date: 01/22/22 Requesting physician: Shar Alejo Reason for Consult: acute cva History of Present Illness: This is a 71-year-old gentleman with medical history of TIA about 5 years ago, diabetes, diabetic neuropathy who presented emergency department because of left-sided weakness. History is obtained from patient's granddaughter was at bedside. Seems to the patient was last seen normal around 1:30 PM then the patient went to bed in the afternoon yesterday and then the around 6:30 H he continued to be unresponsive and the family felt he was having left sided weakness and left lower facial droop. It does not seem the patient had any recent fever or any infection recently. Patient is on aspirin 81 mg daily. Patient is not on any anticoagulation. Seems the patient has a loop monitor for several years but no A. fib or flutter to the granddaughter's knowledge. Patient and baseline is usually alert oriented times 4 and walks using a walker and has a peripheral neuropathy so has some mama numbness in his feet mostly the left (some weakness left lower). Since he's been our facility continue to be unresponsive and the continues not to be moving the left side but moving the right side. Patient does not have any history of seizures. It seems that patient had episode of possible confusion about 5 years ago and was told that he had an a TIA in the past. Per the granddaughter patient does not smoke or any illicit drug use or all call use. Some of the workup during his hospital visit consisted of: Initial temperature is 97.7 but then the patient started spiking fevers in our facility of T backs of 100.9 Initial white blood cells 12.5 and was not neutrophilic or lymphocytic but the repeat his 17.1. His sugar on presentation POC is 348. TSH is 1.51 EKG is reported uncertain regular rhythm. Left axis deviation. Moderate intraventricular conduction delay. Moderate T-wave abnormality consider lateral ischemia. Abnormal EKG. CT of the head is reported as cerebral atrophy. Possible romero white matter hypo density in the right posterior frontal lobe that could be related to the ischemia and is a change compared to old exam. CT angiography of the head and neck is reported as negative. The ED team activated stroke code and they spoke with the stroke team and was felt the patient is not TPA candidate since his symptoms are greater than 6 hours and the risk outweighed the benefits. Review of Systems Review of system is limited with apparent positive and negative as per HPI. Past Medical History Past Medical History: Cancer, CVA/TIA, Diabetes Mellitus, GERD/Reflux, Hyperlipidemia, Hypertension Additional Past Medical History / Comment(s): skin CA, drop foot & rt. sided weakness increased r/t CVA 2017, hx. hairy cell leukemia, back pain & neuropathy, positive stool test History of Any Multi-Drug Resistant Organisms: None Reported Past Surgical History: Back Surgery, Heart Catheterization Additional Past Surgical History / Comment(s): splenectomy, loop recorder, cataract surg. Past Anesthesia/Blood Transfusion Reactions: No Reported Reaction Past Psychological History: Depression Smoking Status: Never smoker Past Alcohol Use History: None Reported Past Drug Use History: None Reported - Past Family History Mother Family Medical History: Cancer Medications and Allergies Home Medications Medication Instructions Recorded Confirmed Type Cholecalciferol [Vitamin D3 (25 1,000 unit PO DAILY 01/29/17 01/21/22 History Mcg = 1000 Iu)] Omeprazole 20 mg PO DAILY 01/29/17 01/21/22 History Sertraline [Zoloft] 100 mg PO DAILY 01/29/17 01/21/22 History sitaGLIPtin PHOS/metFORMIN HCL 1 tab PO DAILY 01/29/17 01/21/22 History [Janumet 50-1,000 mg Tablet] Atorvastatin [Lipitor] 40 mg PO HS tab 01/31/17 01/21/22 Rx Metoprolol Tartrate [Lopressor] 25 mg PO BID 04/19/17 01/21/22 History Tamsulosin HCl [Flomax] 0.4 mg PO DAILY 04/19/17 01/21/22 History Aspirin 81 mg PO DAILY 05/02/17 01/21/22 History Diabetic Shot Unknown 1 dose SQ DAILY 01/21/22 01/21/22 History Sertraline [Zoloft] 50 mg PO DAILY 01/21/22 01/21/22 History Allergies Allergy/AdvReac Type Severity Reaction Status Date / Time ROXANNA Inhibitors Allergy increases Verified 01/21/22 20:11 potassium levels Physical Examination - Vital Signs Vital Signs: Vital Signs Temp Pulse Pulse Resp BP BP Pulse Ox 01/22/22 08:46 100.7 F H 89 17 133/84 96 01/22/22 08:00 100.7 F H 89 17 133/84 96 01/22/22 05:05 100 F H 01/22/22 03:10 95 01/22/22 03:05 90 L 01/22/22 03:00 100.9 F H 95 20 156/84 88 L 01/22/22 00:00 99 F 113 H 22 165/90 93 L 01/21/22 22:30 115 H 18 175/109 95 01/21/22 22:00 112 H 18 172/105 92 L 01/21/22 21:30 108 H 18 149/106 95 01/21/22 21:00 110 H 18 173/107 95 01/21/22 20:30 106 H 18 151/112 96 01/21/22 20:15 95 18 163/95 95 01/21/22 20:00 101 H 18 158/100 96 01/21/22 19:45 98 18 147/99 96 01/21/22 19:30 95 18 150/87 95 01/21/22 19:21 97.7 F 85 16 131/73 93 L Intake and Output 01/21/22 01/22/22 01/22/22 22:59 06:59 14:59 Output Total 2400 Balance -2400 Output: Urine 2400 Straight 1200 Other: Voiding Method Diaper Diaper # Voids 1 Weight 70.307 kg 72 kg GENERAL: The patient is lying in bed and is not in acute distress. CHEST: The heart rate is regular rate rhythm. No murmurs to auscultation. LUNG: Clear to auscultation bilaterally no wheezing noted throughout. Not labored breathing. ABDOMEN/GI: Bowel sounds present in all 4 quadrants. No tenderness to palpation throughout. NEUROLOGICAL: Higher mental function: The patient is stupor. He is minimally responsive to verbally stimuli and would open his eyes then would go back. He is not verbally responsive or following commands. Cranial nerves: Has fixed right gaze. Pupils are round, equal and reactive to light. Slight left nasolabial flattening. Is mute. Motor: The strength is limited in assessment because of his condition but moving the right upper extremity sponateneously above gravity. Decrease tone over the left side. Normal bulk. Cerebellum: Unable to assess. Sensation: Unable to assess. Reflexes (right/left): 2+ uppers while lowers are 0-1+. Plantars are mute bilaterally. Results - Laboratory Findings CBC and BMP: 01/22/22 07:31 01/22/22 07:31 Abnormal Lab Findings: Abnormal Labs 01/21/22 01/21/22 01/21/22 19:22 19:46 19:46 WBC 12.5 H MCV 105.1 H Neutrophils # BUN 23 H Glucose 378 H POC Glucose (mg/dL) 348 H Hemoglobin A1c 01/21/22 01/22/22 01/22/22 23:59 00:48 06:19 WBC MCV Neutrophils # BUN Glucose POC Glucose (mg/dL) 320 H 297 H 316 H Hemoglobin A1c 01/22/22 01/22/22 01/22/22 07:31 07:31 07:31 WBC 17.1 H MCV 105.2 H Neutrophils # 12.8 H BUN 22 H Glucose 262 H POC Glucose (mg/dL) Hemoglobin A1c 11.1 H Assessment and Plan Assessment: Acute CVA (seems in MCA territory. Presented for left sided weakness, facial droop and on examination has right gaze fixation). No IV tpa since outside window. Encephalopathy likely due to stroke. He has fever and likely aspiration pneumonia from stroke. History of TIA 5 years ago Nasim recorder for several years Diabetes Mellitus Diabetic Neuropathy Plan: I ordered a repeat CT of the head that today. Recommend MRI of the brain and recommend removing the loop recorder sold to attempt to get this MRI. I consulted cardiology team as well. In the ED the patient was given aspirin 300 mg once and I'll continue it since the patient continue it for secondary stroke prophylaxis (rectal since encephalopathic). Once more awake or he has a feeding tube and recommended aspirin 81 and Plavix 75 daily. As well as Lipitor 80 mg for secondary stroke prophylaxis 2-D echo, lipid panel pending. I ordered a routine EEG and will happen tomorrow. Continue neuro checks On cardiac monitoring PT, OT and TILLER WORKER are consulted I notified the patient's family member that the likely the fever is due to aspiration pneumonia likely from the stroke but cannot rule outs meningitis or encephalitis which seems unlikely. The granddaughter agrees and wants to hold off on lumbar puncture for now. We'll defer the rest of the medical management to the primary team For DVT prophylaxis: Use SCD's for now. The condition is very guarded. The plan is discussed with patient's grand-daughter who is at bedside and his nurse. Thank you for the consultation. Dr. Louis will start neurology service tomorrow AM. Prashanth Pinto M.D. Neuro-Hospitalist. Time with Patient: Greater than 30
--- NOTE | 2022-01-22 13:08 | P.PN ---
Subjective Progress Note Date: 01/22/22 Hospital course 71 years old male patient with history of hypertension diabetes, previous stroke, presented to the hospital with a physiologic left-sided weakness, patient had computed tomography scan which showed possible stroke in the posterior right frontal lobe, CT and head and neck was negative, neurology was consulted Subjective Patient seen and evaluated at bedside, patient is confused with left-sided hemiparesis which is likely due to stroke, family present at bedside, proper counseling done, all questions answered in detail Physical examination General: Patient is confused Head: atraumatic, normocephalic, symmetric Eyes: no lid lesion], anicteric sclera Mouth: no lip lesion, mucus membranes moist Cardiovascular: S1S2 reg rate and rhythm, no murmur, no gallop Lungs: Bilateral equal air entry, no wheezing no rhonchi no crackles. Abdominal: soft, nontender to palpation, no guarding, no appreciable orga nomegaly Neurological examination: Patient is confused has left-sided neglect and hemiparesis gaze is deviated towards right. Neurological examination could not be done due to clinical condition Assessment and Plan Acute CVA Continue stroke protocol Neuro checks and vital signs per protocol Permissive hypertension Hemoglobin A1c TSH lipid profile Echocardiogram Continue cardiac telemetry Aspirin and statin per neurology recommendation PT OT speech eval MRI had pending EEG pending Appreciated recommendations from neurology Fever, leukocytosis Questionable aspiration pneumonia We'll cover with antibiotic Repeat chest x-ray Check urinalysis Check blood cultures Start patient on IV fluid Insert Champagne catheter for strict ins and outs monitoring Hypertension Hold antihypertensive medication Allow permissive hypertension Sinus tachycardia frequent PVCs and restlessness No cardiac history continue to monitor Echocardiogram pending We'll consult cardiology Macrocytic anemia Check B12 and folate Diabetes Check hemoglobin A1c next line continue insulin sliding scale CODE STATUS: Full code DVT prophylaxis: Subcu to his heparin Discharge plan: Possible discharge back to home versus rehab next 1-2 days Objective - Vital Signs Vital signs: Vital Signs Temp 100.7 F H 01/22/22 08:46 Pulse 89 01/22/22 08:46 Resp 17 01/22/22 08:46 BP 133/84 01/22/22 08:46 Pulse Ox 96 01/22/22 08:46 FiO2 Intake & Output 01/21/22 01/22/22 01/22/22 18:59 06:59 18:59 Output Total 2400 Balance -2400 Weight 72 kg Output: Urine 2400 Straight 1200 Other: Voiding Method Diaper Diaper # Voids 1 - Labs CBC & Chem 7: 01/22/22 07:31 01/22/22 07:31 Labs: Abnormal Lab Results - Last 24 Hours (Table) 01/21/22 01/21/22 01/21/22 Range/Units 19:22 19:46 19:46 WBC 12.5 H (3.8-10.6) k/uL MCV 105.1 H (80.0-100.0) fL Neutrophils # (1.3-7.7) k/uL BUN 23 H (9-20) mg/dL Glucose 378 H (74-99) mg/dL POC Glucose (mg/dL) 348 H (70-110) mg/dL Hemoglobin A1c (0.0-6.0) % 01/21/22 01/22/22 01/22/22 Range/Units 23:59 00:48 06:19 WBC (3.8-10.6) k/uL MCV (80.0-100.0) fL Neutrophils # (1.3-7.7) k/uL BUN (9-20) mg/dL Glucose (74-99) mg/dL POC Glucose (mg/dL) 320 H 297 H 316 H (70-110) mg/dL Hemoglobin A1c (0.0-6.0) % 01/22/22 01/22/22 01/22/22 Range/Units 07:31 07:31 07:31 WBC 17.1 H (3.8-10.6) k/uL MCV 105.2 H (80.0-100.0) fL Neutrophils # 12.8 H (1.3-7.7) k/uL BUN 22 H (9-20) mg/dL Glucose 262 H (74-99) mg/dL POC Glucose (mg/dL) (70-110) mg/dL Hemoglobin A1c 11.1 H (0.0-6.0) % 01/22/22 Range/Units 11:54 WBC (3.8-10.6) k/uL MCV (80.0-100.0) fL Neutrophils # (1.3-7.7) k/uL BUN (9-20) mg/dL Glucose (74-99) mg/dL POC Glucose (mg/dL) 246 H (70-110) mg/dL Hemoglobin A1c (0.0-6.0) %
[2022-01-22 13:51] LABS: LDL Cholesterol,Calculated 88.6 mg/dL (0.0-131.0); VLDL Calculation 15.28 mg/dL (5.00-40.00)
--- NOTE | 2022-01-22 14:31 | CT ---
EXAMINATION TYPE: CT brain wo con CT DLP: 1134.4 mGycm, Automated exposure control for dose reduction was used. DATE OF EXAM: 01/22/2022 2:05 PM COMPARISON: Prior CT Brain from 01/21/2022 and 01/19/2017. CLINICAL INDICATION:Male, 71 years old with history of stroke left sided weakness, Stroke left sided weakness TECHNIQUE: Brain: Multiple axial CT images of the brain were obtained without IV contrast. FINDINGS: Brain: Extra-axial spaces: No abnormal extra-axial fluid collections. Ventricular system: Within normal limits Cerebral parenchyma: Continued evolution of right MCA territory infarct involving the right frontal l obe and parietal lobes. No acute intraparenchymal hemorrhage or mass effect. The remainder of the gr ay-white junctions are well differentiated. Nonspecific white matter changes present. Cerebellum: Hypodensity within the right cerebellar hemisphere inferiorly suspicious for age-indeterm inate injury. Mass effect: No evidence of midline shift. Intracranial vasculature: unremarkable Soft tissues: Normal. Calvarium/osseous structures: No depressed skull fracture. Paranasal sinuses and mastoid air cells: Mild scattered paranasal sinus disease. Visualized orbits: Bilateral aphakia IMPRESSION: 1. Progression of right MCA territory infarct involving the right frontal and parietal lobes. No robles dence of hemorrhagic conversion. 2. Age-indeterminate of the right cerebellum injury from prior exam 01/21/2022 but new from 01/29/2017. 3. White matter changes most pronounced in the left centrum semiovale. 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
--- NOTE | 2022-01-22 14:43 | XR ---
EXAMINATION TYPE: XR chest 1V DATE OF EXAM: 01/22/2022 COMPARISON: 01/21/2022 HISTORY: Pneumonia TECHNIQUE: FINDINGS: There is elevated right diaphragm. Heart size is normal. No heart failure. There is coarsen ing of the lung markings. There are chest leads. IMPRESSION: There is some atelectasis right lung base without change. Chronic elevation of the right diaphragm could relate to diaphragm paralysis.
[2022-01-22] MEDS: SODIUM CHLORIDE 0.9% 1,000 ML IV SCH ×2 (14:57→17:34)
[2022-01-22] MEDS: ASPIRIN 300 MG SUPP RECTAL SCH (14:57)
[2022-01-22] MEDS: PIPERACILLIN-TAZOBACTAM 3.375 GM in SODIUM CHLORIDE 0.9% 100 ML IVPB SCH ×2 (16:19→23:49)
[2022-01-22 16:33] LABS: Glucose,Whole Blood 213 mg/dL (70-110)
[2022-01-22 18:56] LABS: Appearance,Urine Clear (Clear); Bilirubin,Urine Negative (Negative); Blood,Urine Large (Negative); Color,Urine Yellow; Glucose,Urine (UA) 4+ (Negative); Ketones,Urine 1+ (Negative); Leukocyte Esterase,Urine Negative (Negative); Nitrite,Urine Negative (Negative); PH, Urine 5.5 (5.0-8.0); Protein,Urine 1+ (Negative); RBC,Urine 1 /hpf (0-5); Squamous Epithelial Cell,Urine 1 /hpf (0-4); Urobilinogen,Urine <2.0 mg/dL (<2.0); WBC,Urine 1 /hpf (0-5)
[2022-01-22 20:23] LABS: Glucose,Whole Blood 199 mg/dL (70-110)
[2022-01-22] MEDS ORDERED: ACETAMINOPHEN IV (For NPO) 1,000 MG in EMPTY BAG 1 BAG IVPB PRN (20:36)
[2022-01-22 23:56] LABS: Glucose,Whole Blood 250 mg/dL (70-110)
[2022-01-23] MEDS: SODIUM CHLORIDE 0.9% 1,000 ML IV SCH ×3 (03:55→16:48)
[2022-01-23 05:51] LABS: Glucose,Whole Blood 198 mg/dL (70-110)
[2022-01-23] MEDS: INSULIN ASPART (NovoLOG) 100 UNIT/ML VIAL SQ SCH ×3 (05:53→18:45)
[2022-01-23 07:30] LABS: Basophils # (A) 0.1 k/uL (0-0.2); Basophils % (A) 1 %; Eosinophils # (A) 0.1 k/uL (0-0.7); Eosinophils % (A) 1 %; HCT 47.1 % (39.0-53.0); HGB 15.1 gm/dL (13.0-17.5); Lymphocytes % (A) 24 %; MCH 33.1 pg (25.0-35.0); MCV 103.6 fL (80.0-100.0); Macrocytosis Slight; Mean Platelet Volume 8.9; Monocytes # (A) 0.7 k/uL (0-1.0); Monocytes % (A) 4 %; Neutrophils # (A) 11.6 k/uL (1.3-7.7); Neutrophils % (A) 70 %; Platelet Count 220 k/uL (150-450); RBC 4.54 m/uL (4.30-5.90); WBC 16.5 k/uL (3.8-10.6)
[2022-01-23 07:47] LABS: Albumin 3.8 g/dL (3.5-5.0); Calcium 8.3 mg/dL (8.4-10.2); Potassium 3.7 mmol/L (3.5-5.1); Total Bilirubin 1.8 mg/dL (0.2-1.3); Total Protein 6.7 g/dL (6.3-8.2)
[2022-01-23] MEDS: PIPERACILLIN-TAZOBACTAM 3.375 GM in SODIUM CHLORIDE 0.9% 100 ML IVPB SCH (09:37)
[2022-01-23] MEDS: ASPIRIN 300 MG SUPP RECTAL SCH (09:38)
--- NOTE | 2022-01-23 11:36 | P.PN ---
Subjective Patient was examined at bedside not complaining of any new symptomatology. He continues to be at his baseline unfortunately not very verbal stimuli however does respond to painful stimuli and mainly has a right-sided gaze. Family was present at bedside all questions have been answered. We are pending final recommendations from neurology and also MRI to be completed. Objective - Vital Signs Vital signs: Vital Signs Temp 98.9 F 01/23/22 08:00 Pulse 86 01/23/22 08:00 Resp 20 01/23/22 08:00 BP 140/74 01/23/22 08:00 Pulse Ox 96 01/23/22 08:00 FiO2 Intake & Output 01/22/22 01/23/22 01/23/22 18:59 06:59 18:59 Intake Total 865 Output Total 575 Balance 865 -575 Intake: Intake, IV Titration 865 Amount Piperacillin-Tazobactam 3 25 .375 gm In Sodium Chloride 0.9% 100 ml @ 25 mls/hr IVPB Q8HR [facility] Rx# :[id number] Sodium Chloride 0.9% 1, 840 000 ml @ 70 mls/hr IV . [id number] [facility] Rx#:[id number] Output: Urine 575 Other: Voiding Method Diaper Diaper Indwelling Catheter - Exam Physical examination General: Patient is confused not responsive during my examination Head: atraumatic, normocephalic, symmetric Eyes: no lid lesion], anicteric sclera Mouth: no lip lesion, mucus membranes moist Cardiovascular: S1S2 reg rate and rhythm, no murmur, no gallop Lungs: Bilateral equal air entry, no wheezing no rhonchi no crackles. Abdominal: soft, nontender to palpation, no guarding, no appreciable organomegaly Neurological examination: Patient is confused has left-sided neglect and hemiparesis gaze is deviated towards right. Neurological examination could not be done due to clinical condition - Labs CBC & Chem 7: 01/23/22 06:49 01/23/22 06:49 Labs: Abnormal Lab Results - Last 24 Hours (Table) 01/22/22 01/22/22 01/22/22 Range/Units 11:54 13:14 16:30 WBC (3.8-10.6) k/uL MCV (80.0-100.0) fL Neutrophils # (1.3-7.7) k/uL Chloride (98-107) mmol/L Carbon Dioxide (22-30) mmol/L BUN (9-20) mg/dL Glucose (74-99) mg/dL POC Glucose (mg/dL) 246 H 213 H (70-110) mg/dL Calcium (8.4-10.2) mg/dL Total Bilirubin (0.2-1.3) mg/dL Procalcitonin 0.13 H (0.02-0.09) ng/mL Ur Specific [place] (1.001-1.035) Urine Protein (Negative) Urine Glucose (UA) (Negative) Urine Ketones (Negative) Urine Blood (Negative) 01/22/22 01/22/22 01/22/22 Range/Units 18:00 20:22 23:55 WBC (3.8-10.6) k/uL MCV (80.0-100.0) fL Neutrophils # (1.3-7.7) k/uL Chloride (98-107) mmol/L Carbon Dioxide (22-30) mmol/L BUN (9-20) mg/dL Glucose (74-99) mg/dL POC Glucose (mg/dL) 199 H 250 H (70-110) mg/dL Calcium (8.4-10.2) mg/dL Total Bilirubin (0.2-1.3) mg/dL Procalcitonin (0.02-0.09) ng/mL Ur Specific [place] 1.040 H (1.001-1.035) Urine Protein 1+ H (Negative) Urine Glucose (UA) 4+ H (Negative) Urine Ketones 1+ H (Negative) Urine Blood Large H (Negative) 01/23/22 01/23/22 01/23/22 Range/Units 05:49 06:49 06:49 WBC 16.5 H (3.8-10.6) k/uL MCV 103.6 H (80.0-100.0) fL Neutrophils # 11.6 H (1.3-7.7) k/uL Chloride 112 H (98-107) mmol/L Carbon Dioxide 20 L (22-30) mmol/L BUN 34 H (9-20) mg/dL Glucose 202 H (74-99) mg/dL POC Glucose (mg/dL) 198 H (70-110) mg/dL Calcium 8.3 L (8.4-10.2) mg/dL Total Bilirubin 1.8 H (0.2-1.3) mg/dL Procalcitonin (0.02-0.09) ng/mL Ur Specific [place] (1.001-1.035) Urine Protein (Negative) Urine Glucose (UA) (Negative) Urine Ketones (Negative) Urine Blood (Negative) Assessment and Plan Assessment: Acute CVA Continue stroke protocol Neuro checks and vital signs per protocol Permissive hypertension Echocardiogram Continue cardiac telemetry I'll start the patient on aspirin high-intensity statin PT OT speech eval MRI had pending EEG pending Appreciated recommendations from neurology Fever, leukocytosis Questionable aspiration pneumonia Do not see an indication for antibiotic treatment will discontinue IV Zosyn continue to monitor. Urinalysis and chest x-ray negative there is a small possibility of aspiration pneumonia we'll repeat chest x-ray. Check blood cultures Start patient on IV fluid Insert Champagne catheter for strict ins and outs monitoring - recommend discontinuing this and using a condom catheter instead to avoid nosocomial infection Hypertension Hold antihypertensive medication Allow permissive hypertension Sinus tachycardia frequent PVCs and restlessness No cardiac history continue to monitor Echocardiogram pending Macrocytic anemia Check B12 and folate Diabetes Hemoglobin A1c 11 Patient needs adequate control when initiating insulin treatment was started with 5 units at bedtime patient is nothing by mouth secondary to ischemic stroke. CODE STATUS: Full code DVT prophylaxis: Subcu to his heparin Discharge plan: Goals of care discussion to take place after MRI reviewed.
[2022-01-23 12:02] LABS: Glucose,Whole Blood 182 mg/dL (70-110)
--- NOTE | 2022-01-23 12:48 | EEG ---
ELECTROENCEPHALOGRAM REPORT DATE OF SERVICE: 01/23/2022. PREAMBLE: This is a 71-year-old male with altered mental status, rule out seizure. He came with left-sided weakness. He was found unresponsive and had left-sided facial droop and left-sided weakness. No history of seizures. EEG FINDINGS: This is a 21 channel digital EEG recording with video component, utilizing 10/20 international system with referential and bipolar montages. Background consists of moderately well-developed and regulated, predominantly 4-6 hertz theta activity seen diffusely in bihemispheric region. Background does not seem to be reactive to eye opening or closing. Some myogenic activity was seen in the temporal frontal region. Photic driving response was not seen. No definitive focal or generalized epileptiform activity was seen. Different stages of sleep were not seen. IMPRESSION: This is an abnormal EEG due to background slowing of moderate degree. This is suggestive of generalized cerebral dysfunction as can be seen with toxic metabolic encephalopathy or related to diffuse structural brain abnormality. Clinical correlation is recommended. No epileptiform activity was seen. MMODL / IJN: [id number] / MTDD
[2022-01-23 14:35] VITALS: BMI 26.4
--- NOTE | 2022-01-23 17:41 | CA ---
Transthoracic Echo Report Name: Mike Adhikari Age: 71 Gender: M : 1950 Exam Date: 01/23/2022 11:09 Exam Location: [facility] Ht (in): 65 Wt (lb): 158 Ordering Physician: Lang William DO Attending/Referring Phys: Michael Escoto DO General Accountant Alejandrina Christopher RDCS Procedure CPT: Indications: stroke Cardiac Hx: Technical Quality: Good Contrast 1: Definity Total Dose (mL): Contrast 2: Total Dose (mL): MEASUREMENTS (Male / Female) Normal Values 2D ECHO LV Diastolic Diameter PLAX 3.9 cm 4.2 - 5.9 / 3.9 - 5.3 cm LV Systolic Diameter PLAX 2.7 cm IVS Diastolic Thickness 0.9 cm 0.6 - 1.0 / 0.6 - 0.9 cm LVPW Diastolic Thickness 1.0 cm 0.6 - 1.0 / 0.6 - 0.9 cm LV Relative Wall Thickness 0.5 RV Internal Dim ED PLAX 3.1 cm LA Volume 41.7 cm??? 18 - 58 / 22 - 52 cm??? M-MODE Aortic Root Diameter MM 3.3 cm LA Systolic Diameter MM 3.3 cm LA Ao Ratio MM 1.0 MV E Point Septal Separation 0.9 cm AV Cusp Separation MM 1.9 cm DOPPLER AV Peak Velocity 95.6 cm/s AV Peak Gradient 3.7 mmHg AI Peak Velocity 243.0 cm/s AI Peak Gradient 23.6 mmHg AI Pressure Half Time 666.5 ms MV Area PHT 5.7 cm??? MR Peak Velocity 345.5 cm/s MR Peak Gradient 47.7 mmHg Mitral E Point Velocity 93.6 cm/s Mitral A Point Velocity 54.8 cm/s Mitral E to A Ratio 1.7 MV Deceleration Time 132.6 ms MV E' Velocity 2.2 cm/s Mitral E to MV E' Ratio 42.1 TR Peak Velocity 77.5 cm/s TR Peak Gradient 2.4 mmHg Right Ventricular Systolic Press 7.4 mmHg FINDINGS Left Ventricle Left ventricular ejection fraction is estimated at 45-50 %. Left ventricular cavity size normal. Left ventricular wall thickness normal. Grade 1 diastolic dysfunction. Anteroapical and anterolateral hypokinesis Right Ventricle The right ventricle is normal in size and function. Right Atrium The right atrium is normal in size. Left Atrium The left atrium is normal in size. Mitral Valve Structurally normal mitral valve without significant stenosis or prolapse. There is mild mitral regurgitation. Aortic Valve Structurally normal aortic valve without significant sclerosis or stenosis. There is mild aortic regurgitation. Focal thickening of the aortic valve cusps. Tricuspid Valve Structurally normal tricuspid valve without significant stenosis. Pulmonary artery systolic pressure is normal. Pulmonic Valve Structurally normal pulmonic valve without significant stenosis. There is no pulmonic regurgitation. Pericardium Normal pericardium without effusion. Aorta Normal aortic root dimension. CONCLUSIONS 1. Mildly. Systolic function 2. Mild aortic, mitral and tricuspid regurgitation. Previewed by: Dr. Teja Chin MD (Electronically Signed) Final Date: 23 January 2022 17:41
--- NOTE | 2022-01-23 18:19 | CONS ---
CONSULTATION REASON FOR CONSULT: Loop recorder in a patient with CVA. HISTORY OF PRESENT ILLNESS: Mr. Mike Adhikari is a 71-year-old gentleman who has been admitted to the hospital with what seems to be an acute CVA from which he has recovered. Most of the issue was with some speech disturbances. It looks more like a TIA type picture with slurring of speech, which has recovered. The patient does have a loop recorder. This has not been interrogated. I am recommending that we should interrogate the loop recorder. If there is any evidence of arrhythmia, it will help us in finding out if he had any atrial fibrillation or not. This patient has multiple comorbid conditions in the form of known previous TIA, diabetes, hypertension, hyperlipidemia. He is also status post some cataract surgery and splenectomy. He is not a good historian, does not communicate well. PHYSICAL EXAMINATION: On examination, blood pressure is controlled. There is no JVD. S1-S2 heard normally. Rhythm appears to be regular. LUNGS reveal bilateral air entry. ABDOMEN: Soft. Lower EXTREMITIES reveal diminished pulses. CENTRAL NERVOUS SYSTEM: Grossly no focal deficits. EKG revealed a sinus mechanism with IVCD type picture. IMPRESSION: 1. Transient ischemic attack/cerebrovascular accident. 2. History of a loop recorder probably to assist with diagnosis. This will be interrogated today. 3. No evidence of any abnormality on the CT angiogram of the neck and brain. RECOMMENDATIONS: I would recommend that we interrogate the device today. Based on the findings, we will make further recommendations. We will continue current medical regimen and await the results of MRI. Hopefully we can interrogate the device today, rule out atrial fibrillation. MMODL / IJN: [id number] /
[2022-01-23 18:38] LABS: Glucose,Whole Blood 154 mg/dL (70-110)
--- NOTE | 2022-01-23 18:55 | MR ---
EXAMINATION TYPE: MR brain wo con DATE OF EXAM: 01/23/2022 4:25 PM COMPARISON: CT brain 01/22/2022. MRI brain 01/30/2017 CLINICAL INDICATION:Male, 71 years old with history of stroke. Left sided weakness; TECHNIQUE: Multi planar, multi sequence imaging was performed through the brain including: T1, T2, In version recovery, Diffusion weighted imaging, and gradient echo imaging. No gadolinium was given. FINDINGS: Standard diffusion within the right MCA territory consistent with previous CT findings. Additional sc attered foci of restricted diffusion seen within the centrum semiovale in the NASIR territory on the ri ght. Remote injury of the right cerebellar hemisphere medially. Remote injury of the left periventric ular white matter There is sulcal effacement with vasogenic edema predominantly involving the right MCA territory area of acute/subacute CVA. The ventricular system, and cisterns appear unremarkable. Patchy areas of high T2 signal intensity a re seen within the periventricular white matter. Midline structures show no abnormality. The bone marrow signal is within normal limits. The paranasal sinuses demonstrate no significant para nasal sinus disease. The lenses are removed from the globes. IMPRESSION: 1. Acute/subacute stroke of the right MCA territory as well as scattered microinfarcts within the ri ght NASIR territory. 2. Remote injury of the right cerebellum and left periventricular white matter holloway radiata as see n on 2017 study. 3. Nonspecific white matter changes, likely secondary to small vessel ischemic disease.
[2022-01-23] MEDS ORDERED: ARTIFICIAL TEARS-HYPROMELLOSE DROPS 15 ML BTL BOTH EYES PRN (20:13)
[2022-01-23] MEDS ORDERED: ZOLPIDEM 5 MG TAB PO PRN (20:13)
[2022-01-23] MEDS ORDERED: LORazepam 1 MG/0.5 ML VIAL IV PRN (20:13)
[2022-01-23] MEDS ORDERED: polyethylene glycoL 3350 17 GM POWD.PACK PO PRN (20:13)
[2022-01-23] MEDS ORDERED: ONDANSETRON 4 MG/2 ML VIAL IVP PRN (20:13)
[2022-01-23] MEDS ORDERED: ACETAMINOPHEN TAB 325 MG TAB PO PRN (20:13)
[2022-01-23 20:39] LABS: Glucose,Whole Blood 151 mg/dL (70-110)
[2022-01-23] MEDS: ATROPINE OPHTH SOLN 1% 5ML BTL SUBLINGUAL PRN (20:41)
[2022-01-23] MEDS ORDERED: INSULIN DETEMIR (LEVEMIR) 100 UNIT/ML SYR SQ SCH (21:00)
[2022-01-23] MEDS: HYDROmorphone 0.5 MG/0.5 ML SYRINGE IVP PRN (22:45)
[2022-01-23 23:27] VITALS: RESP 16
[2022-01-24] MEDS: INSULIN ASPART (NovoLOG) 100 UNIT/ML VIAL SQ SCH ×3 (01:22→10:38)
[2022-01-24] MEDS: SODIUM CHLORIDE 0.9% 1,000 ML IV SCH ×3 (01:23→03:31)
[2022-01-24] MEDS: ATROPINE OPHTH SOLN 1% 5ML BTL SUBLINGUAL PRN ×2 (03:26→10:13)
[2022-01-24 03:29] VITALS: BP 152/88; TEMP 98.6
[2022-01-24] MEDS ORDERED: ATORVASTATIN 40 MG TAB PO SCH (09:00)
[2022-01-24] MEDS: ASPIRIN 300 MG SUPP RECTAL SCH (10:14)
--- NOTE | 2022-01-24 10:33 | P.PN ---
Subjective Progress Note Date: 01/23/22 Patient was initially seen by Dr. Prashanth Pinto. Please refer to his note for details. Patient is a 71-year-old male came to the hospital with left-sided weakness. Patient does have a loop recorder. Patient currently on aspirin suppository. Patient also has aspiration pneumonia. Multiple family members were present today, including patient's , daughter, granddaughter besides multiple other family members. Telemetry monitoring showing sinus rhythm with first-degree AV block. Objective - Vital Signs Vital signs: Vital Signs Temp 98.1 F 01/23/22 16:00 Pulse 78 01/23/22 16:00 Resp 20 01/23/22 16:00 BP 151/80 01/23/22 16:00 Pulse Ox 97 01/23/22 16:00 FiO2 Intake & Output 01/22/22 01/23/22 01/23/22 18:59 06:59 18:59 Intake Total 865 Output Total 825 Balance 865 -825 Weight 72 kg Intake: Intake, IV Titration 865 Amount Piperacillin-Tazobactam 3 25 .375 gm In Sodium Chloride 0.9% 100 ml @ 25 mls/hr IVPB Q8HR [facility] Rx# :[id number] Sodium Chloride 0.9% 1, 840 000 ml @ 70 mls/hr IV . [id number] [facility] Rx#:[id number] Output: Urine 825 Other: Voiding Method Diaper Diaper Indwelling Catheter - Exam Patient is very groggy, lethargic, snoring. Patient slightly opens his eyes to calling his name. He does not answer any question. Patient's mouth is dry. Mouth is open. Patient apparently is spontaneously moving his right arm and right leg. He is hemiplegic on the left side. Patient did squeeze my hands mildly on the right. He did not wiggle his feet. Patient does have a chronic foot drop which is not new. - Labs CBC & Chem 7: 01/23/22 06:49 01/23/22 06:49 Labs: Abnormal Lab Results - Last 24 Hours (Table) 01/22/22 01/22/22 01/22/22 Range/Units 18:00 20:22 23:55 WBC (3.8-10.6) k/uL MCV (80.0-100.0) fL Neutrophils # (1.3-7.7) k/uL Chloride (98-107) mmol/L Carbon Dioxide (22-30) mmol/L BUN (9-20) mg/dL Glucose (74-99) mg/dL POC Glucose (mg/dL) 199 H 250 H (70-110) mg/dL Calcium (8.4-10.2) mg/dL Total Bilirubin (0.2-1.3) mg/dL Ur Specific [place] 1.040 H (1.001-1.035) Urine Protein 1+ H (Negative) Urine Glucose (UA) 4+ H (Negative) Urine Ketones 1+ H (Negative) Urine Blood Large H (Negative) 01/23/22 01/23/22 01/23/22 Range/Units 05:49 06:49 06:49 WBC 16.5 H (3.8-10.6) k/uL MCV 103.6 H (80.0-100.0) fL Neutrophils # 11.6 H (1.3-7.7) k/uL Chloride 112 H (98-107) mmol/L Carbon Dioxide 20 L (22-30) mmol/L BUN 34 H (9-20) mg/dL Glucose 202 H (74-99) mg/dL POC Glucose (mg/dL) 198 H (70-110) mg/dL Calcium 8.3 L (8.4-10.2) mg/dL Total Bilirubin 1.8 H (0.2-1.3) mg/dL Ur Specific [place] (1.001-1.035) Urine Protein (Negative) Urine Glucose (UA) (Negative) Urine Ketones (Negative) Urine Blood (Negative) 01/23/22 Range/Units 12:00 WBC (3.8-10.6) k/uL MCV (80.0-100.0) fL Neutrophils # (1.3-7.7) k/uL Chloride (98-107) mmol/L Carbon Dioxide (22-30) mmol/L BUN (9-20) mg/dL Glucose (74-99) mg/dL POC Glucose (mg/dL) 182 H (70-110) mg/dL Calcium (8.4-10.2) mg/dL Total Bilirubin (0.2-1.3) mg/dL Ur Specific [place] (1.001-1.035) Urine Protein (Negative) Urine Glucose (UA) (Negative) Urine Ketones (Negative) Urine Blood (Negative) Microbiology - Last 24 Hours (Table) 01/22/22 13:14 Blood Culture - Preliminary Blood No Growth after 24 hours Assessment and Plan Assessment: Acute right MCA territory CVA. Presented with left sided weakness, facial droop and on examination has right gaze preference. Patient was not a candidate for IV tpa since came outside window. Encephalopathy likely due to stroke. He has fever and likely aspiration pneumonia from stroke. History of TIA 5 years ago Nasim recorder for several years Diabetes Mellitus Diabetic Neuropathy Plan: MRI of the brain was performed today, which revealed moderate to large size acute ischemic stroke involving the right MCA vascular territory, extending from the frontal horn of the lateral ventricle to the occipital horn of the lateral ventricle, but not including the basal ganglia. Also involving some smaller areas of acute ischemia in the right medial frontal region, in NASIR territory. Official radiology report pending. Patient currently receiving aspirin 300 mg rectally. Once more awake or he has a feeding tube, then recommended aspirin 81 and Plavix 75 daily. As well as Lipitor 80 mg for secondary stroke prophylaxis 2-D echo revealed mild aortic, mitral and tricuspid regurgitation. Left ventricle systolic function is mildly decreased 45-50%. Anterior apical and anterior lateral wall hypokinesis. Left atrium is normal in size. Lipid panel with cholesterol 149, LDL 88, HDL 45 and triglycerides 76. Hemoglobin A1c 11.1, indicating poorly controlled diabetes. Suggest optimize control diabetes target A1c < 7.0. Routine EEG revealed background slowing of moderate degree. This is suggestive of generalized cerebral dysfunction as can be seen with toxic metabolic encephalopathy or related to diffuse structural brain abnormality. Clinical correlation is recommended. No epileptiform activity was seen. On cardiac monitoring, showing sinus rhythm with first-degree AV block. PT, OT and PHOTOVOLTA[employer] P[employer] SYSTEMS ENGINEER are consulted Discussed with patient's family in detail. Informed them the result of MRI, reviewed MRI films on the computer. They were informed of probable need for prolonged rehabilitation, and his overall prognosis. We'll defer the rest of the medical management to the primary team For DVT prophylaxis: Use SCD's for now. The condition is very guarded.
[2022-01-24 10:45] VITALS: PULSE 95
[2022-01-24] MEDS ORDERED: GLYCOPYRROLATE 0.2 MG/ML 2 ML VIAL IVP ONE (13:42)
--- NOTE | 2022-01-24 13:53 | PN ---
PROGRESS NOTE Mr. Adhikari has been converted to hospice care. He has a loop recorder, but we will not do any extraction. No further interrogation is necessary. We will keep him comfortable. I discussed this with the patient's family. I will see him if necessary. MELQUIADES / JOAN: [id number] /
[2022-01-24] MEDS ORDERED: SCOPOLAMINE 1 MG/72 HR PATCH TRANSDERM STA (14:40)
--- NOTE | 2022-01-24 15:23 | P.DS ---
Providers Date of admission: 01/21/22 21:43 Expected date of discharge: 01/24/22 Attending physician: Silvestre Esteban MD Consults: 01/21/22 21:44 Consult Physician Urgent Consulting Provider: Prashanth Pinto Consult Reason/Comments: Acute CVA Do you want consulting provider notified?: Yes 01/22/22 11:27 Consult Physician Urgent Consulting Provider: Gee Lnidsay Consult Reason/Comments: stroke in patient with loop recorder Do you want consulting provider notified?: Yes Primary care physician: [facility] Course: History of Present Illness H&P Date: 01/21/22 Chief Complaint: aphasia, left sided weakness 71 year old male with Hypertension , DM History of present as per H&P: patient comes in after being found in the evening, less interactive, aphasic with left sided weakness, he was last seen normal before taking a nap around noon time. he normally sleeps a lot during the day. he has history of TIA about 5 years ago however in the ED be indicated that he had the stroke with residual bilateral weakness. Patient unable to provide any meaningful history at this time he is aphasic. Upon arrival to the ED he was last seen normal more than 6 hours ago so he was not a candidate for TPA CT of the brain showed possible stroke in the posterior right frontal lobe. CT angiogram the head and neck showed no abnormalities. Neurology on-call recommended medical management. Patient is on daily aspirin no blood thinners. Denies any history of trauma or falls. No history of A. fib or blood clots. No recent travel or hospitalization. Otherwise no report of illness fever chills coughing respiratory distress chest pain abdominal pain nausea vomiting changes in bowel or urinary habits Family indicated patient has severe peripheral neuropathy with bilateral foot drop. Hospital course: Patient was admitted and MRI ordered. MRI showed acute subacute stroke in the right middle cerebral artery territory as well as scattered micro-infarct within the right anterior cerebral artery territory. #2 remote injury of the right cerebellum and left periventricular white matter holloway radiate last seen in one 2016. Patient condition was not improving so the family decided to make him DO NOT RESUSCITATE with comfort care. Patient currently is groggy and lethargic and unresponsive .Family decided to take the patient home with hospice care. Disposition: Home with hospice Physical examination: Patient is very groggy, lethargic, snoring. Patient slightly opens his eyes to calling his name. He does not answer any question. Patient's mouth is dry. Mouth is open. Patient apparently is spontaneously moving his right arm and right leg. He is hemiplegic on the left side. Patient did squeeze my hands mildly on the right. He did not wiggle his feet. Patient does have a chronic foot drop which is not new. Discharge diagnosis: Acute CVA Fever, leukocytosis Questionable aspiration pneumonia Hypertension Sinus tachycardia frequent PVCs and restlessness Macrocytic anemia Check B12 and folate Diabetes Hemoglobin A1c 11 Time spent in discharge process 35 minutes Patient Condition at Discharge: Stable Plan - Discharge Summary Discharge Rx Participant: No New Discharge Prescriptions: Discontinued RX: sitaGLIPtin PHOS/metFORMIN HCL [Janumet 50-1,000 mg Tablet] 1 tab PO BID RX: Cholecalciferol [Vitamin D3 (25 Mcg = 1000 Iu)] 1,000 unit PO DAILY RX: Sertraline [Zoloft] 100 mg PO DAILY RX: Omeprazole 20 mg PO DAILY RX: Atorvastatin [Lipitor] 40 mg PO HS tab Metoprolol Tartrate [Lopressor] 25 mg PO BID RX: Tamsulosin HCl [Flomax] 0.4 mg PO DAILY RX: Aspirin 81 mg PO DAILY Sertraline [Zoloft] 50 mg PO DAILY Insulin Glargine,Hum.rec.anlog [Roberto Mckenzie] 35 - 45 units SQ DAILY Discharge Disposition: HOME WITH HOSPICE
[2022-01-24] MEDS: HYDROmorphone 0.5 MG/0.5 ML SYRINGE IVP PRN (16:11)
== END 2022-01-24 16:23 | disposition hospice, inpatient (51) | DRG 64 ==
LOC: EC 19:19 → 3SCARD 21:43
PROVIDERS: ADMIT Internal Medicine; ATTEND Internal Medicine
DX: I63.511 Cerebral infarction due to unspecified occlusion or stenosis of right middle cerebral artery (principal); J69.0 Pneumonitis due to inhalation of food and vomit; G81.94 Hemiplegia, unspecified affecting left nondominant side; G93.49 Other encephalopathy; I69.351 Hemiplegia and hemiparesis following cerebral infarction affecting right dominant side; Z51.5 Encounter for palliative care; Z66 Do not resuscitate; R29.810 Facial weakness; R47.01 Aphasia; R29.725 NIHSS score 25; E78.5 Hyperlipidemia, unspecified; F32.A Depression, unspecified; E11.65 Type 2 diabetes mellitus with hyperglycemia; I10 Essential (primary) hypertension; E11.42 Type 2 diabetes mellitus with diabetic polyneuropathy; M21.372 Foot drop, left foot; M21.371 Foot drop, right foot; D53.9 Nutritional anemia, unspecified; I44.0 Atrioventricular block, first degree; Z79.82 Long term (current) use of aspirin; Z79.84 Long term (current) use of oral hypoglycemic drugs; Z79.899 Other long term (current) drug therapy; Z90.81 Acquired absence of spleen; Z85.6 Personal history of leukemia
CPT/HCPCS: 36415; 70450; 70496; 70498; 70551; 71045; 80053; 80061; 81001; 82607; 82746; 83036; 84145; 84443; 84484; 85025; 85610; 85730; 87040; 93005; 93306; 95816; 96361; 96374; 99285